=== PATIENT | female | born 1975 | race Caucasian/White ===

== ENCOUNTER 2020-02-19 12:01 | Outpatient (REF) | payer OTHER, SELFPAY ==
--- NOTE | 2020-02-19 12:05 | MM_ITS ---
EXAMINATION: MM SCREENING DIGITAL BREAST TOMOSYNTHESIS, BILATERAL CLINICAL INFORMATION: Screening. Asymptomatic. The lifetime risk of breast cancer based on the Tyrer-Cuzick Model is 8%. COMPARISON: Mammography: 10/03/2018, 02/28/2016, 12/11/2014 TECHNIQUE: Digital breast tomosynthesis is performed in both the craniocaudal and mediolateral oblique views along with computer-aided detection (CAD). Synthesized 2D images are generated from the tomosynthesis. FINDINGS: There are scattered areas of fibroglandular density (ACR BI-RADS breast composition Category b). There are no significant masses, abnormal calcifications, or other abnormalities. No developing density. No significant changes from prior studies. MM/MM tomosynthesis screening BI IMPRESSION: No significant changes from prior studies. ASSESSMENT: BI-RADS 1: Negative RECOMMENDATION: Routine annual mammography screening. This patient's information was entered into a reminder system with a target due date for their next mammogram.
== END 2020-02-19 12:02 | disposition home or self-care (01) ==
LOC: HO.MAMMO 12:01
PROVIDERS: Visit Provider Internal Medicine
DX: Z12.31 Encounter for screening mammogram for malignant neoplasm of breast (principal)
CPT/HCPCS: 77063; 77067

== ENCOUNTER 2021-01-06 09:44 | Outpatient (REF) | payer OTHER, SELFPAY ==
[2021-01-06 11:25] LABS: MANUAL DIFF FLAG NO
[2021-01-06 11:30] LABS: Basophils Percent Auto 0.7 % (0-2); Eosinophils Absolute Auto 0.1 X10*3/uL (0.0-0.4); Eosinophils Percent Auto 1.3 % (0-4); Hematocrit 39.9 % (37-47); Hemoglobin 12.8 g/dl (12.0-16.0); Imm Gran Abs Auto 0.03 X10*3/uL (0.00-0.03); Imm Gran Pct Auto 0.5 % (0.0-0.4); Lymphocytes Absolute Auto 1.7 X10*3/uL (1.2-4.9); Lymphocytes Percent Auto 27.3 % (20-40); Mean Corpuscular HGB Conc 32.1 g/dl (31.0-35.0); Mean Corpuscular Hemoglobin 29.8 pg (27.0-33.0); Mean Platelet Volume 10.5 fL (9.4-12.3); Monocytes Absolute Auto 0.4 X10*3/uL (0.1-1.2); Monocytes Percent Auto 6.7 % (2-11); Neutrophils Absolute Auto 3.9 X10*3/uL (2.0-8.3); Neutrophils Percent Auto 63.5 % (45-73); Platelet Count 261 X10*3/uL (160-400); Red Blood Count 4.29 X10*6/uL (4.20-5.50); Red Cell Distribution Width 13.4 % (11.0-16.0); White Blood Count 6.1 X10*3/uL (4.8-10.8)
[2021-01-06 12:09] LABS: Alanine Aminotransferase 18 U/L (0-31); Albumin Level 4.3 g/dL (3.5-5.0); Alkaline Phosphatase 40 U/L (39-117); Anion Gap 10 (12-20); Aspartate Amino Transferase 17 U/L (5-31); Bilirubin Total 1.1 mg/dL (0.0-1.0); Blood Urea Nitrogen 9 mg/dL (9-16); Carbon Dioxide 28 mmol/L (22-29); Chloride 106 mmol/L (96-108); Cholesterol 172 mg/dL; Estimated Glomerular Filt Rate > 60; Glucose Fasting 103 mg/dL (60-99); HDL Cholesterol 40 mg/dL; LDL Cholesterol Calculated 118 mg/dl; Potassium 4.1 mmol/L (3.3-5.1); Sodium 140 mmol/L (135-145); Total Protein 6.9 g/dL (6.5-8.0); Triglycerides 70 mg/dL
[2021-01-14 12:55] LABS: Vitamin D 25-OH, D2 <4 ng/mL; Vitamin D 25-OH, D3 42 ng/mL; Vitamin D 25-OH, Total 42 ng/mL (30-100)
== END 2021-01-06 09:45 | disposition home or self-care (01) ==
LOC: HO.HMGCLDS 09:44
PROVIDERS: PCP Internal Medicine; Visit Provider Internal Medicine
DX: Z00.01 Encounter for general adult medical examination with abnormal findings (principal); M54.50 Low back pain, unspecified; Z72.0 Tobacco use
CPT/HCPCS: 36415; 80053; 80061; 82306; 85025

== ENCOUNTER 2021-03-13 14:27 | Outpatient (REF) | payer OTHER, SELFPAY ==
--- NOTE | ~2021-03-13 | MM_ITS ---
EXAMINATION: MM SCREENING DIGITAL BREAST TOMOSYNTHESIS, BILATERAL CLINICAL INFORMATION: Screening. Asymptomatic. The lifetime risk of breast cancer based on the Tyrer-Cuzick Model is 7%. COMPARISON: Mammography: 02/19/2020, 10/03/2018, 02/28/2016 TECHNIQUE: Digital breast tomosynthesis is performed in both the craniocaudal and mediolateral oblique views along with computer-aided detection (CAD). Synthesized 2D images are generated from the tomosynthesis. FINDINGS: There are scattered areas of fibroglandular density (ACR BI-RADS breast composition Category b). Right breast is unremarkable. There is no interval mass or developing density or architectural abnormality. Neither breast shows abnormal calcifications. The bilateral axilla and skin contours are unremarkable. Left CC view has asymmetric density mid medial breast. There is no correlate on MLO view and finding may represent shifting fibroglandular densities related to positioning. Patient will be recalled to further characterize. MM/MM tomosynthesis screening BI IMPRESSION: 1. Left: Asymmetric density versus shifting fibroglandular tissue mid medial breast on CC view. 2. Right: No mammographic evidence of malignancy. ASSESSMENT: BI-RADS 0: Incomplete - Need Additional Imaging Evaluation RECOMMENDATION: 1. Additional views of the left breast (spot CC, rolled CC x2). 2. Targeted ultrasound if warranted after review of the additional views. 3. Radiology department staff will contact the patient for additional imaging. This patient's information was entered into a reminder system with a target due date for their next mammogram.
== END 2021-03-13 14:28 | disposition home or self-care (01) ==
LOC: HO.MAMMO 14:27
PROVIDERS: PCP Internal Medicine; Visit Provider Internal Medicine
DX: Z12.31 Encounter for screening mammogram for malignant neoplasm of breast (principal)
CPT/HCPCS: 77063; 77067

== ENCOUNTER 2021-03-17 09:09 | Outpatient (REF) | payer OTHER, SELFPAY ==
--- NOTE | ~2021-03-17 | MM_ITS ---
EXAMINATION: MM DIAGNOSTIC DIGITAL BREAST TOMOSYNTHESIS, LEFT CLINICAL INFORMATION: Asymmetric density medial aspect The lifetime risk of breast cancer based on the Tyrer-Cuzick Model is 7%. COMPARISON: Mammography: March 13, 2021 and studies dating back to December 02, 2013 TECHNIQUE: Digital breast tomosynthesis is performed in rolled full-field craniocaudal views and spot compression craniocaudal view Synthesized 2D images are generated from the tomosynthesis. FINDINGS: There are scattered areas of fibroglandular density (ACR BI-RADS breast composition Category b). There are no significant masses, abnormal calcifications, or other abnormalities. The questioned density about the medial aspect of the left breast is seen to have represented superimposition of fibroglandular tissue. Results are discussed with the patient at time of visit. MM/MM tomosynthesis diagnostic LT IMPRESSION: No specific mammographic evidence to suggest malignancy. ASSESSMENT: BI-RADS 1: Negative RECOMMENDATION: Routine annual mammography screening. This patient's information was entered into a reminder system with a target due date for their next mammogram.
== END 2021-03-17 09:10 | disposition home or self-care (01) ==
LOC: HO.MAMMO 09:09
PROVIDERS: PCP Internal Medicine; Visit Provider Internal Medicine
DX: R92.2 Inconclusive mammogram (principal)
CPT/HCPCS: 77061; 77065

== ENCOUNTER 2021-04-07 17:43 | Emergency (ER) | payer OTHER, SELFPAY ==
--- NOTE | ~2021-04-07 | XR_ITS ---
EXAMINATION: XR CHEST CLINICAL INFORMATION: Chest pain COMPARISON: None TECHNIQUE: Frontal view of the chest was obtained. FINDINGS: No significant abnormality is noted involving the heart, lungs, mediastinum, bony thorax or soft tissues. XR/XR chest 1V IMPRESSION: Unremarkable chest examination.
--- NOTE | ~2021-04-07 | CT_ITS ---
EXAMINATION: CT ANGIOGRAM OF THE CHEST WITH AND WITHOUT CONTRAST (CT PULMONARY ANGIOGRAM FOR PE) CLINICAL INFORMATION: Reason for Exam Left chest pain, pleuritic, rule out PE, mass COMPARISON: None TECHNIQUE: Prior to contrast administration, noncontrast localization images were obtained. Subsequently, multidetector volumetric imaging was performed from the thoracic inlet to below the diaphragms following the administration of 63 mL Omnipaque 350 intravenous contrast. No contrast reaction reported Sagittal, coronal, and MIP oblique sagittal reformatted images were obtained on the CT workstation, uploaded to PACS, and reviewed. This CT examination was performed using dose optimization techniques as appropriate, variously including the following: *Automated exposure control *Adjustment of mA and/or kV according to patient size (this includes techniques or standardized protocols for targeted exams where dose is matched to indication/reason for exam; i.e. extremities or head) *Use of iterative reconstruction technique Total exam dose-length product 117 mGy-cm FINDINGS: QUALITY OF STUDY/CONTRAST BOLUS: Satisfactory. PULMONARY ARTERIES: No central or segmental pulmonary emboli. THORACIC AORTA: No aneurysm or dissection. 2 vessel branching pattern of the arch is present with common trunk involving the brachiocephalic and left carotid. LUNG: No focal consolidation, nodules or masses. Calcified granuloma present in the right lower lobe. Some posterior blebs and reticulation is noted bilaterally. No pneumothorax. PLEURA: No pleural effusion or pneumothorax. MEDIASTINUM: Normal heart size. No pericardial effusion. No hilar or mediastinal lymphadenopathy. No evidence of septal bowing or right heart strain. CHEST WALL/AXILLA: No axillary or internal mammary lymphadenopathy. OSSEOUS STRUCTURES: No acute or suspicious osseous abnormality. UPPER ABDOMEN: A cyst is noted in the right lobe of the liver just beneath the hemidiaphragm ([id number]). No reflux of contrast into the hepatic veins to suggest elevated right heart pressures. CT/CT angio chest PE protocol IMPRESSION: 1. No evidence of pulmonary emboli. 2. No acute intrathoracic disease. Incidentally noted calcified right lower lobe granuloma VTE: negative
[2021-04-07 19:16] VITALS: BP 117/72; PULSE 79; RESP 16; TEMP 36.6; O2SAT 98; BMI 25.1
--- NOTE | 2021-04-07 19:23 | ECG_ITS ---
Test Reason : CP Blood Pressure : / mmHG Vent. Rate : 072 BPM Atrial Rate : 072 BPM P-R Int : 166 ms QRS Dur : 084 ms QT Int : 384 ms P-R-T Axes : 064 081 066 degrees QTc Int : 420 ms Normal sinus rhythm with sinus arrhythmia Low voltage QRS Septal infarct , age undetermined Abnormal ECG When compared to the previous EKG of Possible Septal infarct Present Referred By: Generic ED Physician Electronically Signed By:ROLANDO GALLAGHER MD
[2021-04-07 19:39] LABS: MANUAL DIFF FLAG NO
[2021-04-07 19:55] LABS: COVID-19 Test Negative (Negative)
[2021-04-07 19:57] LABS: Basophils Absolute Auto 0.1 X10*3/uL (0.0-0.2); Basophils Percent Auto 0.8 % (0-2); Eosinophils Absolute Auto 0.1 X10*3/uL (0.0-0.4); Eosinophils Percent Auto 1.9 % (0-4); Hematocrit 38.4 % (37.0-47.0); Imm Gran Abs Auto 0.03 X10*3/uL (0.00-0.03); Imm Gran Pct Auto 0.4 % (0.0-0.4); Lymphocytes Absolute Auto 2.4 X10*3/uL (1.2-4.9); Lymphocytes Percent Auto 32.8 % (20-40); Mean Corpuscular HGB Conc 33.9 g/dl (31.0-35.0); Mean Corpuscular Hemoglobin 30.6 pg (27.0-33.0); Mean Corpuscular Volume 90.4 fL (80.0-98.0); Mean Platelet Volume 9.9 fL (9.4-12.3); Monocytes Absolute Auto 0.5 X10*3/uL (0.1-1.2); Monocytes Percent Auto 7.1 % (2-11); Neutrophils Absolute Auto 4.2 x10*3/uL (2.0-8.3); Platelet Count 224 X10*3/uL (160-400); Red Blood Count 4.25 X10*6/uL (4.20-5.50); Red Cell Distribution Width 12.7 % (11.0-16.0); White Blood Count 7.3 X10*3/uL (4.8-10.8)
[2021-04-07 19:58] LABS: Anion Gap 13 (12-20); Blood Urea Nitrogen 13 mg/dL (9-16); Calcium 9.7 mg/dL (8.4-10.2); Carbon Dioxide 29 mmol/L (22-29); Chloride 105 mmol/L (96-108); Creatinine Clr Calc Pharmacy 81.6; Estimated Glomerular Filt Rate > 60; Glucose Random 72 mg/dL (60-115); Sodium 143 mmol/L (135-145)
[2021-04-07 20:01] LABS: Troponin-I High Sensitivity < 3.5 ng/L (<3.5-17.0)
[2021-04-07 22:22] VITALS: BP 115/64; PULSE 62; RESP 16; TEMP 36.7; O2SAT 98
--- NOTE | 2021-04-07 22:34 | PC.NURSE ---
pt to room, chg into gown and awaiting MD's eval. EKG obtained and labs drawn to lab. will continue to monitor pt.
--- NOTE | 2021-04-07 22:38 | ED_ITS ---
HPI - Chest Pain General Chief Complaint: Chest Pain Stated Complaint: LUNG PAIN Time Seen by Provider: 04/07/21 22:38 Source: patient Mode of arrival: ambulatory Limitations: no limitations History of Present Illness HPI narrative: 45-year-old female who presents emergency department for evaluation of left- sided chest pain. The patient states she had a COVID-19 infection approximately 2 years prior. She states that ever since then she has been having intermittent left-sided chest pain. She points to her lateral left chest when asked to localize the pain. She describes the pain as if someone is ?blowing up the balloon in her ribcage . She states that she has gotten this pain more frequently over the last 2 weeks. The pain is worse with breathing. She states she does feel short of breath but denies dyspnea on exertion. She denied fever, chills, nausea, vomiting, diarrhea. She denied myalgias or arthralgias. She states she has had some weight gain but cannot quantify the amount. She states that while she was waiting in the emergency department she developed left arm numbness and tingling this. She believes that she may have gotten COVID again 2 weeks prior since she had fatigue but she had no other symptoms. The patient is not vaccinated for COVID- 19. The patient does smoke cigarettes. She has been smoking for 32 years. Related Data Home Medications Medication Instructions Recorded Confirmed No Known Home Meds 01/06/21 01/06/21 Allergies Allergy/AdvReac Type Severity Reaction Status Date / Time No Known Allergies Allergy Verified 04/07/21 19:23 Review of Systems Verdana 4l Review of Systems: Yes all other systems are reviewed and Verdana 4d are negative [facility] Past Medical History [facility] Narrative: Past medical history: Hiatal hernia. Past surgical history: Hiatal hernia repair. Social history: The patient smokes 1 pack of cigarettes per week times 32 years. Patient denies alcohol use. She denies drug use. 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 Temp 98.1 F 04/07/21 22:22 Shovel Loader Operator New 4d Pulse 62 04/07/21 22:22 Shovel Loader Operator New 4d Resp 16 04/07/21 22:22 BP 115/64 04/07/21 22:22 Pulse Ox 98 04/07/21 22:22 BMI result Body Mass Index 25.1 Const: General: cooperative and no acute distress Orientation/consciousness: oriented to person and oriented to place Limitations: no limitations HENMT: Head: Yes normal to inspection, Yes normocephalic and Yes atraumatic Ears: external ears normal General nose exam: Normal external nose present Face and sinus: Yes normal facial exam Mouth: Normal oral and palatal mucosa present Throat: Yes posterior oropharynx normal Eyes: General: appearance normal, both eyes and all related structures Pupils: Equal, round and reactive pupils present Neck: Neck: Yes normal visual inspection, Yes no lymphadenopathy, Yes trachea midline and Yes supple Chest: Chest palpation & inspection: normal inspection of the chest and tenderness (Left costochondral joints, left lateral chest) Resp: Effort & Inspection: normal respiratory effort and able to speak in complete sentences Auscultation: clear to auscultation bilaterally Cardio: Rate: regular rate Rhythm: regular rhythm Heart sounds: S1 normal heart sound present, S2 normal heart sound present and no murmurs GI: Inspection: Yes normal to inspection Palpation (GI): Soft to palpation, nontender and no guarding Auscultation: normal bowel sounds : General: Yes no CVA tenderness Back/Spine/Pelvis: Back: no CVA tenderness Skin: General skin exam: no rashes or lesions noted Neuro: General: oriented to person and oriented to place Cranial nerves: Yes CN's II-XII intact bilaterally and Yes Equal, round and reactive pupils present Cognition (Neuro): normal cognition Motor exam (neuro): 5/5 motor strength present throughout Extrem: General: Yes normal to inspection Psych: Appearance: grossly normal Speech and movement: Normal speech and movement present Affect: normal affect Attitude: cooperative Thought process: Normal thought process present Thought content: Normal thought content present Course Course Course Narrative: 45-year-old female who presents emergency department for evaluation of intermittent chest pain x2 years with increased episodes of chest pain for the past 2 weeks. She states that this evening the pain became worse. The pain is located in the left chest underneath the left breast, she states the pain feels of some was blowing up the balloon in her chest and is worse with breathing. She does feel short of breath with the pain. Vital signs were normal. Patient's examination did reveal left costochondral joint tenderness and left lateral chest wall tenderness. Patient had a CBC and basic metabolic panel wh ich were unremarkable. The patient's high sensitivity troponin I was below detectable limits. Chest x-ray revealed no acute abnormality. COVID-19 test was negative. Given the pleuritic nature of her pain and her smoking history I am concerned the patient may have a PE versus a malignancy is the cause of her pain. I did order a CT pulmonary angiogram PE protocol. Patient was ordered to get normal saline IV x1 L and Toradol 15 mg IV for pain. 0222: The CT pulmonary angiogram PE protocol of the chest revealed no PE no evidence of malignancy or chest wall abnormalities. The patient does have an incidental right calcified granuloma which is not causing her pain. The patient did not get any relief of her pain from the IV Toradol. At this time I suspect the patient has musculoskeletal/joint pain with possible spasm. She was advised to take ibuprofen 600 mg 3 times a day for the next 4 days. She is also given cyclobenzaprine 10 mg to take 3 times a day as needed for pain as well. I did discuss the use and side effects these medications with the patient. MDM - Chest Pain Lab Data Result diagrams: 04/07/21 19:26 04/07/21 19:26 Labs: Lab Results 04/07/21 04/07/21 04/07/21 Range/Units 19:26 19:26 19:26 WBC 7.3 (4.8-10.8) X10*3/uL RBC 4.25 (4.20-5.50) X10*6/uL Hgb 13.0 (12.0-16.0) g/dl Hct 38.4 (37.0-47.0) % MCV 90.4 (80.0-98.0) fL MCH 30.6 (27.0-33.0) pg MCHC 33.9 (31.0-35.0) g/dl RDW 12.7 (11.0-16.0) % Plt Count 224 (160-400) X10*3/uL MPV 9.9 (9.4-12.3) fL Immature Gran % (Auto) 0.4 (0.0-0.4) % Neut % (Auto) 57.0 (45-73) % Lymph % (Auto) 32.8 (20-40) % Stafford % (Auto) 7.1 (2-11) % Eos % (Auto) 1.9 (0-4) % Baso % (Auto) 0.8 (0-2) % Lymph # (Auto) 2.4 (1.2-4.9) X10*3/uL Stafford # (Auto) 0.5 (0.1-1.2) X10*3/uL Eos # (Auto) 0.1 (0.0-0.4) X10*3/uL Baso # (Auto) 0.1 (0.0-0.2) X10*3/uL Abs Immat Gran (auto) 0.03 (0.00-0.03) X10*3/uL Absolute Neuts (auto) 4.2 (2.0-8.3) x10*3/uL Absolute Nucleated RBC 0.000 (0.0-0.012) X10*3/uL Nucleated RBC % (auto) 0.0 (0.0-0.2) /100WBC Sodium 143 (135-145) mmol/L Potassium 4.0 (3.3-5.1) mmol/L Chloride 105 (96-108) mmol/L Carbon Dioxide 29 (22-29) mmol/L Anion Gap 13 (12-20) BUN 13 (9-16) mg/dL Creatinine 0.89 (0.5-1.4) mg/dL Estim Creat Clear Calc 81.6 Estimated GFR > 60 Random Glucose 72 (60-115) mg/dL Calcium 9.7 D (8.4-10.2) mg/dL Troponin I High Sens < 3.5 (<3.5-17.0) ng/L COVID-19 ([facility]) (Negative) COVID-19 Clin Com 04/07/21 Range/Units 19:26 WBC (4.8-10.8) X10*3/uL RBC (4.20-5.50) X10*6/uL Hgb (12.0-16.0) g/dl Hct (37.0-47.0) % MCV (80.0-98.0) fL MCH (27.0-33.0) pg MCHC (31.0-35.0) g/dl RDW (11.0-16.0) % Plt Count (160-400) X10*3/uL MPV (9.4-12.3) fL Immature Gran % (Auto) (0.0-0.4) % Neut % (Auto) (45-73) % Lymph % (Auto) (20-40) % Stafford % (Auto) (2-11) % Eos % (Auto) (0-4) % Baso % (Auto) (0-2) % Lymph # (Auto) (1.2-4.9) X10*3/uL Stafford # (Auto) (0.1-1.2) X10*3/uL Eos # (Auto) (0.0-0.4) X10*3/uL Baso # (Auto) (0.0-0.2) X10*3/uL Abs Immat Gran (auto) (0.00-0.03) X10*3/uL Absolute Neuts (auto) (2.0-8.3) x10*3/uL Absolute Nucleated RBC (0.0-0.012) X10*3/uL Nucleated RBC % (auto) (0.0-0.2) /100WBC Sodium (135-145) mmol/L Potassium (3.3-5.1) mmol/L Chloride (96-108) mmol/L Carbon Dioxide (22-29) mmol/L Anion Gap (12-20) BUN (9-16) mg/dL Creatinine (0.5-1.4) mg/dL Estim Creat Clear Calc Estimated GFR Random Glucose (60-115) mg/dL Calcium (8.4-10.2) mg/dL Troponin I High Sens (<3.5-17.0) ng/L COVID-19 ([facility]) Negative (Negative) COVID-19 Clin Com See Note ECG Data ECG #1: Attestation: I personally reviewed and interpreted this ECG as follows: Interpretation: 192: Normal sinus rhythm with a rate of 72, normal MT interval QRS duration and QTC interval, no ST segment elevation, no ST segment depression, Q-wave in lead V1 and V2 with a small R-wave in V3 consistent with poor R-wave progression. Discharge Plan Discharge Clinical Impression: Acute costochondritis, Muscle spasm Patient Disposition: Home, Self-Care Instructions: Costochondritis (ED) Additional Instructions: Your blood work today was normal. Your EKG did not reveal any changes that are concerning for a new heart attack at this time. Your troponin was undetectable, the troponin is a marker of heart damage in it is reassuring that you do not have any troponin in your blood. I do not think that your pain is caused by a heart attack or heart damage. Your chest x-ray was unremarkable. The CT pulmonary angiogram of your chest did not reveal any blood clots, tumors in your lungs or abnormalities of your chest wall on the left, this is reassuring. You have an incidental calcified granuloma in the right lung which is not causing your pain and this is not related to your COVID-19 infection but is probably related to an old lung infection that you had in the past. I want to treat you for inflammation of your chest joints and spasm of your chest wall muscles. Take the anti-inflammatory medication, ibuprofen 200 mg pills, 3 pills every 6 hours as needed for pain x4 days then as needed for pain You can also Tylenol (acetaminophen) 500 mg pills, 2 pills every 4 to 6 hours as needed for pain. Take Flexeril (cyclobenzaprine) 10 mg pills, 1 pill every 6-8 hours as needed for pain or spasm. This medication will make you sleepy. Do not drive or work while taking this medication. I want you to start taking this medication, 1 pill at night for the next 4 night to see if this helps improve your pain and if it does you can then take it 3 times a day as needed for pain. Follow-up with your doctor in 2 days. Please return to the emergency department if your symptoms get worse or if you develop any symptoms that are concerning to you. Prescriptions: No Action No Known Home Meds 0RF
[2021-04-07] MEDS: Ketorolac Tromethamine 30 MG/ML VIAL 15 MG IVPUSH (23:21)
[2021-04-07] MEDS: 0.9 % Sodium Chloride 1,000 ML 999 ML IV (23:22)
[2021-04-07] MEDS: iohexoL 350 MG/ML 100 ML INFUS..BTL IV (23:52)
[2021-04-08] MEDS: Cyclobenzaprine HCl 10 MG TABLET PO (00:52)
== END 2021-04-08 01:05 | disposition home or self-care (01) ==
PROVIDERS: Emergency Provider Emergency Medicine Emergency Medical Services
DX: M94.0 Chondrocostal junction syndrome [Tietze] (principal); R07.89 Other chest pain; R07.81 Pleurodynia; Z87.891 Personal history of nicotine dependence; Z20.822 Contact with and (suspected) exposure to COVID-19
CPT/HCPCS: 36415; 71045; 71275; 80048; 84484; 85025; 87635; 93005; 96361; 96374; 99284; J1885; Q9967

== ENCOUNTER → 2021-05-18 14:43 | Outpatient (BNVA) | payer OTHER, SELFPAY | PROVIDERS: PCP Internal Medicine; Visit Provider Internal Medicine Pulmonary Disease ==

== ENCOUNTER 2022-04-19 08:46 | Outpatient (REF) | payer OTHER, SELFPAY ==
--- NOTE | ~2022-04-19 | MM_ITS ---
EXAMINATION: MM SCREENING DIGITAL BREAST TOMOSYNTHESIS, BILATERAL CLINICAL INFORMATION: Screening. Asymptomatic. The lifetime risk of breast cancer based on the Tyrer-Cuzick Model is 9.0%. COMPARISON: Mammography: March 17, 2021 and studies dating back to November 29, 2015 TECHNIQUE: Digital breast tomosynthesis is performed in both the craniocaudal and mediolateral oblique views along with computer-aided detection (CAD). Synthesized 2D images are generated from the tomosynthesis. FINDINGS: There are scattered areas of fibroglandular density (ACR BI-RADS breast composition Category b). There are no significant masses, abnormal calcifications, or other abnormalities. MM/MM tomosynthesis screening BI IMPRESSION: No significant changes from prior exam. ASSESSMENT: BI-RADS 1: Negative RECOMMENDATION: Routine annual mammography screening. This patient's information was entered into a reminder system with a target due date for their next mammogram.
== END 2022-04-19 08:47 | disposition home or self-care (01) ==
LOC: HO.MAMMO 08:46
PROVIDERS: PCP Internal Medicine; Visit Provider Internal Medicine
DX: Z12.31 Encounter for screening mammogram for malignant neoplasm of breast (principal)
CPT/HCPCS: 77063; 77067

== ENCOUNTER 2022-09-28 12:49 | Outpatient (AMB) | payer OTHER, SELFPAY ==
--- NOTE | 2022-09-28 12:52 | MHC.PC.OV ---
Vital Signs 09/28/22 12:54 Height 5 ft 9 in Weight 17 lb BMI 2.5 BP 100/64 Blood Pressure Location Rt brachial Position Sitting Pulse 74 Pulse Source Pulse Oximeter Pulse Oximetry (%) 96 Oxygen Delivery Method Room Air Intake Visit Reasons: Discuss Referral Request Allergies No Known Allergies Allergy (Verified 09/28/22 12:54) Medication List - Last Reconciled 09/28/22 by Frances Flores MD No Known Home Meds Tobacco use date assessed: 09/28/22 Dental Screening Dental Screen Date: 09/28/22 Did you have a dental visit in the last 12 months?: Yes Did you have a dental problem in the last 6 months where you did not have access to dental care?: No Was dental information given to patient?: Patient has dentist HPI Discuss Referral Request HPI Details Patient is a 47-year-old female who was last seen April of last year when she presented with feeling of shortness of breath pain left-sided chest and abdomen with shortness of breath Patient was referred to Dr Connors child protective services specialist patient prior to visit with Pulmonary already had a CTA which ruled out PE She contributed her symptoms to COVID infection that she had few weeks earlier. note reviewed from last year, pulmonary did not think the patient's symptoms are related to chest wall all pulmonary. 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 Patient says that frequently she gets flare-up of her hemorrhoids and was thinking of getting surgery however this time she is feeling will better On examination she has a very small hemorrhoids there is no thrombosis there is no pain at this time. Explained to patient that there is no need to do any surgery be need to control the flare up by not letting hard stools formed or getting constipated She is to start taking senna S [id number] 1 or 2 tablets to regulate the bowels and push more fluids. She is also complaining of lower back pain which is also chronic and is requesting a physical therapy. Due for physical exam [facility] Medical History COVID Social History Housing: House Patient Tobacco Use Status: Former Tobacco user Quit Date: 2020 Tobacco use type: Cigarette Years Smoked: 20 years e-Cigarette/Vaping Use: Never Used Current occupational status: employed Cognitive needs: No Hearing needs: No Vision needs: No Questionnaire Thrive Questionnaire Date Thrive assessed: 01/06/21 AUDIT C Alcohol Use Questionnaire (AUDIT-C) 1. How often do you have a drink containing alcohol?: Never Total Score: 0 Review of Systems Const Denies chills and Denies fever(s) ENT Denies epistaxis and Denies nasal discharge Card Denies chest pain Resp Denies chest congestion, Denies cough and Denies hemoptysis GI Denies diarrhea and Denies nausea Skin/Breast Denies rash Neuro Reports no additional complaints Psych Reports no additional complaints Endo Reports no additional complaints Physical exam (Primary Care) Vital Signs: Last Vital Signs Pulse 74 09/28/22 12:54 BP 100/64 09/28/22 12:54 Pulse Ox 96 09/28/22 12:54 Oxygen Delivery Method Room Air 09/28/22 12:54 BMI result Body Mass Index 2.5 Tobacco/Smoking Status: Tobacco use Status Tobacco use date assessed 09/28/22 09/28/22 12:56 Patient Tobacco Use Status Former Tobacco user 09/28/22 12:53 Tobacco use type Cigarette 09/28/22 12:53 e-Cigarette/Vaping Use Never Used 09/28/22 12:56 Thrive Assessment: Date of Thrive Assessment Date Thrive assessed 01/06/21 09/28/22 12:53 Const General: cooperative, comfortable and no acute distress Orientation/consciousness: patient oriented x3 HENMT Head: Yes normocephalic Eyes General: appearance normal, both eyes and all related structures Neck Neck: Yes supple Resp Effort & Inspection: normal respiratory effort, no cough and no stridor Cardio Rhythm: regular rhythm Heart sounds: S1 normal heart sound present and S2 normal heart sound present GI Other: Rectal exam revealed very small single external hemorrhoid there is no thrombosis Skin General skin exam: turgor normal Neuro General: patient oriented x3, tone normal and moves all extremities Extrem Right lower extremity: no edema Left lower extremity: no edema Assessment and Plan Assessment & Plan (1) External hemorrhoid: Code(s): K64.4 - Residual hemorrhoidal skin tags (2) Lumbar pain: Code(s): M54.50 - Low back pain, unspecified (3) Constipation by delayed colonic transit: Code(s): K59.01 - Slow transit constipation (4) Hard stool: Code(s): R19.5 - Other fecal abnormalities Plan Patient is a 47-year-old female who was last seen April of last year when she presented with feeling of shortness of breath pain left-sided chest and abdomen with shortness of breath Patient was referred to Dr Connors child protective services specialist patient prior to visit with Pulmonary already had a CTA which ruled out PE She contributed her symptoms to COVID infection that she had few weeks earlier. note reviewed from last year, pulmonary did not think the patient's symptoms are related to chest wall all pulmonary. 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 Patient says that frequently she gets flare-up of her hemorrhoids and was thinking of getting surgery however this time she is feeling will better On examination she has a very small hemorrhoids there is no thrombosis there is no pain at this time. Explained to patient that there is no need to do any surgery be need to control the flare up by not letting hard stools formed or getting constipated She is to start taking senna S [id number] 1 or 2 tablets to regulate the bowels and push more fluids. She is also complaining of lower back pain which is also chronic and is requesting a physical therapy. Due for physical exam Orders: Orders PT Evaluation and Treatment Today M54.50 - Low back pain, unspecified Coding Level of Care Code Est Pt Level 4 (82680) Diagnoses External hemorrhoid K64.4 Lumbar pain M54.50 Constipation by delayed colonic transit K59.01 Hard stool R19.5
[2022-09-28 12:54] VITALS: BP 100/64; PULSE 74; O2SAT 96
== END 2022-09-28 13:16 | disposition home or self-care (01) ==
PROVIDERS: PCP Internal Medicine; Visit Provider Internal Medicine
DX: K64.4 Residual hemorrhoidal skin tags (principal); M54.50 Low back pain, unspecified; K59.01 Slow transit constipation; R19.5 Other fecal abnormalities
CPT/HCPCS: 99214

== ENCOUNTER 2022-12-12 08:25 | Outpatient (AMB) | payer OTHER, SELFPAY ==
--- NOTE | 2022-12-12 08:29 | A.OFFPC_ITS ---
Vital Signs 12/12/22 08:30 Height 5 ft 9 in Weight 178 lb 4 oz BMI 26.3 BP 104/70 Blood Pressure Location Rt brachial Position Sitting Pulse 68 Pulse Oximetry (%) 99 Oxygen Delivery Method Room Air Intake Visit Reasons: Annual PE Allergies No Known Allergies Allergy (Verified 12/12/22 08:32) Medication List - Last Reconciled 12/12/22 by Frances Flores MD No Known Home Meds Tobacco use date assessed: 12/12/22 Dental Screening Dental Screen Date: 12/12/22 Did you have a dental visit in the last 12 months?: Yes Did you have a dental problem in the last 6 months where you did not have access to dental care?: No Was dental information given to patient?: Patient has dentist HPI Annual PE HPI Details Patient is a 47-year-old female came in today for physical examination Patient goes to [facility] for her gynecological needs, she declined a breast exam today Mammogram was in April of this year I have placed a referral for colonoscopy Patient is under lot of stress she is still fighting for custody of her 11-year-old son She recently got again and hers is very supportive she tells me. Going over her previous labs I do see that 1 time her fasting sugar was slightly off and bilirubin was slightly off as well I have ordered labs for her again she will do them fasting. Patient says that she breaks out into acne off and on and would like to consult a track hoe operator. She also continued to have chronic lower back pain and is seeing chiropractor every 2 weeks. Physical exam 1 year [facility] Medical History COVID Social History Housing: House Patient Tobacco Use Status: Former Tobacco user Quit Date: 2020 Tobacco use type: Cigarette Years Smoked: 20 years e-Cigarette/Vaping Use: Never Used Current occupational status: employed Cognitive needs: No Hearing needs: No Vision needs: No Questionnaire PHQ-9 Over the last 2 weeks, how often have you been bothered by any of the following problems? 1. Little interest or pleasure in doing things: not at all 2. Feeling down, depressed, or hopeless: not at all 3. Trouble falling or staying asleep, or sleeping too much: not at all 4. Feeling tired or having little energy: not at all 5. Poor appetite or overeating: not at all 6. Feeling bad about yourself - or that you are a failure or have let yourself or your family down: not at all 7. Trouble concentrating on things, such as reading the newspaper or watching television: not at all 8. Moving or speaking so slowly that other people could have noticed. Or the opposite - being so fidgety or restless that you have been moving around a lot more than usual: not at all 9. Thoughts that you would be better off or of hurting yourself in some way: not at all Total score: 0 Depression Screening Interpretation: Negative Depression Screening Done: Yes 59054 - PHQ-9 Billing: Yes Source: Developed by Drs. Barak Ann, Christina Alarcon, Deny Sharif and colleagues, with an educational giuliano from [employer] Thrive Questionnaire Date Thrive assessed: 12/12/22 I am a: Patient What is your living situation today?: I have a steady place to live Within the past 12 months, did the food you bought not last and you didn't have the money to get more?: Never true Within the past 12 months, did you worry whether your food would run out before you got money to buy more?: Never true Do you have trouble paying for medicines?: No Do you have trouble getting transportation to medical appointments?: No Do you have trouble paying your heating and electricity bill?: No Do you have trouble taking care of your child, family member or friend?: No Do you have trouble with day-to-day activities such as bathing, preparing meals, shopping, managing finances, etc.?: No Are you currently unemployed and looking for a job?: No Are you interested in more education?: No AUDIT C Alcohol Use Questionnaire (AUDIT-C) 1. How often do you have a drink containing alcohol?: Never 3. How often do you have six or more drinks on one occasion?: Never Total Score: 0 Score Reviewed/Action Taken: Yes CAM-7 AMB Questionnaire CAM-7 Date CAM - 7 assessed: 12/12/22 Feeling nervous, anxious, or on edge: 1 = Several days Not being able to stop or control worryin = Several days Worrying too much about different things: 1 = Several days Trouble relaxin = Several days Being so restless that it is hard to sit still: 0 = Not at all Becoming easily annoyed or irritable: 0 = Not at all Feeling afraid as if something awful might happen: 1 = Several days Total CAM-7 score (0-4 normal; 5-9 mild; 10-14 moderate; 15-21 severe): 5 Source: Developed by Drs. Barak Ann, Christina Alarcon, Deny Shairf and colleagues, with an educational giuliano from [employer] CAM-7 Assessment Billing CAM-7 Assessment Tool: CAM-7 Assessment 47932 Review of Systems Const Denies chills, Denies fever(s) and Denies headache(s) Eyes Denies blurry vision ENT Denies headache(s), Denies nasal discharge, Denies nasal obstruction, Denies odynophagia and Denies sinus pain Card Denies chest pain at rest and Denies chest pain with activity Resp Denies cough and Denies hemoptysis GI Denies diarrhea, Denies odynophagia, Denies vomiting and Denies hematemesis Reports as per HPI Musc Denies abnormal gait Skin/Breast Reports as per HPI Neuro Denies Neuro-related abnormal movements, Denies Abnormal speech present, Denies abnormal gait, Denies headache(s) and Denies Sensory deficit (Neuro) Psych Denies mood swings and Denies paranoia Endo Reports as per HPI Ryan/Lymph Reports as per HPI Aller/Immun Reports as per HPI Physical exam (Primary Care) Vital Signs: Last Vital Signs Pulse 68 12/12/22 08:30 BP 104/70 12/12/22 08:30 Pulse Ox 99 12/12/22 08:30 Oxygen Delivery Method Room Air 12/12/22 08:30 BMI result Body Mass Index 26.3 Tobacco/Smoking Status: Tobacco use Status Tobacco use date assessed 12/12/22 12/12/22 08:34 Patient Tobacco Use Status Former Tobacco user 12/12/22 08:34 Tobacco use type Cigarette 12/12/22 08:34 e-Cigarette/Vaping Use Never Used 12/12/22 08:34 PHQ-9: PHQ-9 Score PHQ-9: Total score 0 12/12/22 09:04 Depression Screening Interpretation: Negative Thrive Assessment: Date of Thrive Assessment Date Thrive assessed 12/12/22 12/12/22 09:04 Const General: cooperative, comfortable and no acute distress Orientation/consciousness: patient oriented x3 HENMT Head: Yes normocephalic and Yes atraumatic Eyes General: appearance normal, both eyes and all related structures Pupils: Equal, round and reactive pupils present EOM: EOMs intact bilaterally Neck Neck: Yes supple and No lymphadenopathy Thyroid: Thyroid normal Lymphatic: no lymphadenopathy noted Resp Effort & Inspection: normal respiratory effort and able to speak in complete sentences Auscultation: clear to auscultation bilaterally Cardio Heart sounds: S1 normal heart sound present and S2 normal heart sound present GI Palpation (GI): Soft to palpation and nontender Auscultation: normal bowel sounds General: Yes no CVA tenderness Back/Spine/Pelvis Back: no CVA tenderness Skin General skin exam: elasticity normal and turgor normal Neuro General: patient oriented x3 and gait normal Cranial nerves: Yes Equal, round and reactive pupils present Speech: No Abnormal speech present Sensory Exam: No Sensory deficit (Neuro) Coordination: tandem gait normal and Romberg test negative Extrem General: Yes normal exam except as noted and No edema Assessment and Plan Assessment & Plan (1) Encounter for general adult medical examination with abnormal findings: Code(s): Z00.01 - Encounter for general adult medical examination with abnormal findings (2) Non-cardiac chest pain: Code(s): R07.89 - Other chest pain (3) Nicotine dependence: Code(s): F17.200 - Nicotine dependence, unspecified, uncomplicated Qualifiers: Nicotine product type: other Substance use status: uncomplicated Qualified Code(s): F17.290 - Nicotine dependence, other tobacco product, uncomplicated (4) Stress: Code(s): F43.9 - Reaction to severe stress, unspecified (5) Acne: Code(s): L70.9 - Acne, unspecified Qualifiers: Acne type: other acne Qualified Code(s): L70.8 - Other acne (6) Chronic lower back pain: Code(s): M54.50 - Low back pain, unspecified; G89.29 - Other chronic pain Qualifiers: Back pain laterality: bilateral Sciatica presence: without sciatica Qualified Code(s): M54.50 - Low back pain, unspecified; G89.29 - Other chronic pain (7) External hemorrhoid: Code(s): K64.4 - Residual hemorrhoidal skin tags (8) Impaired fasting blood sugar: Code(s): R73.01 - Impaired fasting glucose (9) LFT elevation: Code(s): R79.89 - Other specified abnormal findings of blood chemistry Plan Patient is a 47-year-old female came in today for physical examination Patient goes to [facility] for her gynecological needs, she declined a breast exam today Mammogram was in April of this year I have placed a referral for colonoscopy Patient is under lot of stress she is still fighting for custody of her 11-year-old son She recently got again and hers is very supportive she tells me. Going over her previous labs I do see that 1 time her fasting sugar was slightly off and bilirubin was slightly off as well I have ordered labs for her again she will do them fasting. Patient says that she breaks out into acne off and on and would like to consult a track hoe operator. She also continued to have chronic lower back pain and is seeing chiropractor e very 2 weeks. Constipation is better she is taking stool softener as needed however continued to have hemorrhoids without flare-up Still has nicotine dependence, she is chewing gum now but tells me that she only juice to comes for stress relief Physical exam 1 year Orders: Orders Complete Blood Count Auto Diff Today F17.200 - Nicotine dependence, unspecified, uncomplicated, F43.9 - Reaction to severe stress, unspecified, R07.89 - Other chest pain, Z00.01 - Encounter for general adult medical examination with abnormal findings Comprehensive [place]. Panel Fast Today F17.200 - Nicotine dependence, unspecified, uncomplicated, F43.9 - Reaction to severe stress, unspecified, R07.89 - Other chest pain, Z00.01 - Encounter for general adult medical examination with abnormal findings Lipid Panel Today F17.200 - Nicotine dependence, unspecified, uncomplicated, F43.9 - Reaction to severe stress, unspecified, R07.89 - Other chest pain, Z00.01 - Encounter for general adult medical examination with abnormal findings Magnesium Today F17.200 - Nicotine dependence, unspecified, uncomplicated, F43.9 - Reaction to severe stress, unspecified, R07.89 - Other chest pain, Z00.01 - Encounter for general adult medical examination with abnormal findings Referrals Open Access Screening Colonoscopy Referral Z12.11 - Encounter for screening for malignant neoplasm of colon, Z12.12 - Encounter for screening for malignant neoplasm of rectum Dermatology Referral L70.9 - Acne, unspecified Coding Level of Care Code Est Pt Prev Care 40-64y(45327) Diagnoses Encounter for general adult medical examination with abnormal findings Z00.01 Non-cardiac chest pain R07.89 Other tobacco product nicotine dependence, uncomplicated F17.290 Nicotine product type: other Substance use status: uncomplicated Stress F43.9 Other acne L70.8 Acne type: other acne Chronic bilateral low back pain without sciatica M54.50; G89.29 Back pain laterality: bilateral Sciatica presence: without sciatica External hemorrhoid K64.4 Impaired fasting blood sugar R73.01 LFT elevation R79.89 Additional Codes CAM-7 Assessment Billing - CAM-7 Assessment Tool: CAM-7 Assessment [id number] ([id number])
[2022-12-12 08:30] VITALS: BP 104/70; PULSE 68; O2SAT 99; BMI 26.3
== END 2022-12-12 09:02 | disposition home or self-care (01) ==
PROVIDERS: PCP Internal Medicine; Visit Provider Internal Medicine
DX: Z00.00 Encounter for general adult medical examination without abnormal findings (principal); R07.89 Other chest pain; F17.290 Nicotine dependence, other tobacco product, uncomplicated; F43.9 Reaction to severe stress, unspecified; L70.8 Other acne; M54.50 Low back pain, unspecified; G89.29 Other chronic pain; K64.4 Residual hemorrhoidal skin tags; R73.01 Impaired fasting glucose; R79.89 Other specified abnormal findings of blood chemistry
CPT/HCPCS: 99396

== ENCOUNTER 2022-12-13 08:04 | Outpatient (REF) | payer OTHER, SELFPAY ==
[2022-12-13 11:48] LABS: Alanine Aminotransferase 12 U/L (0-31); Albumin Level 4.1 g/dL (3.5-5.0); Alkaline Phosphatase 36 U/L (39-117); Anion Gap 13 (12-20); Aspartate Amino Transferase 14 U/L (5-31); Bilirubin Total 0.7 mg/dL (0.0-1.0); Blood Urea Nitrogen 15 mg/dL (9-16); Calcium 8.6 mg/dL (8.4-10.2); Carbon Dioxide 27 mmol/L (22-29); Chloride 106 mmol/L (96-108); Cholesterol 160 mg/dL (<200); Estimated Glomerular Filt Rate > 60; Glucose Fasting 110 mg/dL (60-99); HDL Cholesterol 43 mg/dL (>40); LDL Cholesterol Calculated 108 mg/dL (<100); Magnesium 2.2 mg/dL (1.6-2.6); Potassium 4.1 mmol/L (3.3-5.1); Sodium 142 mmol/L (135-145); Total Protein 6.7 g/dL (6.5-8.0); Triglycerides 48 mg/dL (<150)
== END 2022-12-13 08:05 | disposition home or self-care (01) ==
LOC: HO.HMGCLDS 08:04
PROVIDERS: PCP Internal Medicine; Visit Provider Internal Medicine
DX: Z00.01 Encounter for general adult medical examination with abnormal findings (principal); R07.89 Other chest pain; F43.9 Reaction to severe stress, unspecified; F17.200 Nicotine dependence, unspecified, uncomplicated
CPT/HCPCS: 36415; 80053; 80061; 83735; 85025

== ENCOUNTER → 2023-03-21 08:09 | Outpatient (REF) | payer OTHER, SELFPAY ==
--- NOTE | 2023-03-21 08:18 | CA_ITS ---
Acquisition Time: 2023-03-21 08:34:07 Total Exercise Time: 00:09:19 Test Indications: CHEST PAIN Medications: NONE Protocol: ANDI Max HR: 150 BPM 87% of Pred: 171 BPM Max BP: 130/072 mmHG Max Work Load: 10.6 METS Exercise stress test exercise 9 min 19 sec of Andi protocol achieving 87% MPHR, without anginal symptoms, without arrhythmias, with normotesnive response to exercise, without EKG changes. Test reviewed with Dr. Moreland Referred By: Frances Flores Overread By: Barbara Hoffman
== END ==
LOC: HO.CARD 08:09
PROVIDERS: PCP Internal Medicine; Visit Provider Internal Medicine
DX: R07.9 Chest pain, unspecified (principal); Z82.49 Family history of ischemic heart disease and other diseases of the circulatory system
CPT/HCPCS: 93017

== ENCOUNTER → 2023-03-21 08:18 | Outpatient (BNV) | payer OTHER, SELFPAY | PROVIDERS: PCP Internal Medicine; Visit Provider Nurse Practitioner | DX: R07.9 Chest pain, unspecified (principal) | CPT/HCPCS: 93016; 93018 ==

== ENCOUNTER 2023-04-03 13:12 | Outpatient (AMB) | payer OTHER, SELFPAY ==
[2023-04-03 13:13] VITALS: BP 106/70; PULSE 84; O2SAT 99; BMI 27.1
--- NOTE | 2023-04-03 13:13 | A.OFFPC_ITS ---
Vital Signs 04/03/23 13:13 Height 5 ft 9 in Weight 183 lb 6 oz BMI 27.1 BP 106/70 Blood Pressure Location Lt brachial Position Sitting Pulse 84 Pulse Source Pulse Oximeter Pulse Oximetry (%) 99 Oxygen Delivery Method Room Air Intake Visit Reasons: Followup chest pain Allergies No Known Allergies Allergy (Verified 04/03/23 13:14) Medication List - Last Reconciled 04/03/23 by Frances Flores MD No Known Home Meds Tobacco use date assessed: 04/03/23 Dental Screening Dental Screen Date: 04/03/23 Did you have a dental visit in the last 12 months?: Yes Did you have a dental problem in the last 6 months where you did not have access to dental care?: No Was dental information given to patient?: Patient has dentist HPI Followup chest pain HPI Details Patient is a 47-year-old female who was last seen by me December of 2022 Patient continued to have chest pains off and on she has been seen in emergency room for that as well Recently she had a stress test done which came back within normal limit Stressed test done 03/21/2023 Showed:Exercise stress test exercise 9 min 19 sec of Dillan protocol achieving 87% MPHR, without anginal symptoms, without arrhythmias, with normotesnive response to exercise, without EKG changes. Test reviewed with Dr. Moreland She came in today for a follow-up appointment Patient is taking no medications currently Last time patient labs in December of last year her fasting sugar was 110 We did the A1c today which is 5.9 Patient had gestational diabetes and she already know how to manage diet I am prescribing gabapentin 100 mg capsule patient is to start taking 1 at night, patient says that she will hold onto the medication for now but she will start taking it next time she has chest discomfort which usually happens at night when she is laying down. We talked about possibility of reflux as well Prilosec is [id number] she can also try that. She does admit to feeling stressed and anxious at time and also depressed however taking no medication and is stable Meanwhile she is taking baby aspirin which has [facility] Medical History COVID Social History Housing: House Patient Tobacco Use Status: Former Tobacco user Quit Date: 2020 Tobacco use type: Cigarette Years Smoked: 20 years e-Cigarette/Vaping Use: Never Used Current occupational status: employed Cognitive needs: No Hearing needs: No Vision needs: No Questionnaire PHQ-9 Over the last 2 weeks, how often have you been bothered by any of the following problems? 1. Little interest or pleasure in doing things: not at all 2. Feeling down, depressed, or hopeless: not at all 3. Trouble falling or staying asleep, or sleeping too much: not at all 4. Feeling tired or having little energy: not at all 5. Poor appetite or overeating: not at all 6. Feeling bad about yourself - or that you are a failure or have let yourself or your family down: not at all 7. Trouble concentrating on things, such as reading the newspaper or watching television: not at all 8. Moving or speaking so slowly that other people could have noticed. Or the opposite - being so fidgety or restless that you have been moving around a lot more than usual: not at all 9. Thoughts that you would be better off or of hurting yourself in some way: not at all Total score: 0 Depression Screening Interpretation: Negative Depression Screening Done: Yes 94480 - PHQ-9 Billing: Yes Source: Developed by Drs. Barak Ann, Christina Alarcon, Deny Sharif and colleagues, with an educational giuliano from [employer]. Thrive Questionnaire Date Thrive assessed: 04/03/23 I am a: Patient What is your living situation today?: I have a steady place to live Within the past 12 months, did the food you bought not last and you didn't have the money to get more?: Never true Within the past 12 months, did you worry whether your food would run out before you got money to buy more?: Never true Do you have trouble paying for medicines?: No Do you have trouble getting transportation to medical appointments?: No Do you have trouble paying your heating and electricity bill?: No Do you have trouble taking care of your child, family member or friend?: No Do you have trouble with day-to-day activities such as bathing, preparing meals, shopping, managing finances, etc.?: No Are you currently unemployed and looking for a job?: Yes Are you interested in more education?: No Please select the resources that you would like help with: None Currently or been in a relationship where the following occur: no concerns reported THRIVE Score: 0 AUDIT C Alcohol Use Questionnaire (AUDIT-C) 1. How often do you have a drink containing alcohol?: Never 3. How often do you have six or more drinks on one occasion?: Never Total Score: 0 Score Reviewed/Action Taken: Yes CAM-7 AMB Questionnaire CAM-7 Date CAM - 7 assessed: 04/03/23 Feeling nervous, anxious, or on edge: 2 = More than half the days Not being able to stop or control worryin = Not at all Worrying too much about different things: 2 = More than half the days Trouble relaxin = Not at all Being so restless that it is hard to sit still: 0 = Not at all Becoming easily annoyed or irritable: 0 = Not at all Feeling afraid as if something awful might happen: 0 = Not at all Total CAM-7 score (0-4 normal; 5-9 mild; 10-14 moderate; 15-21 severe): 4 Source: Developed by Drs. Barak Ann, Christina Alarcon, Deny Sharif and colleagues, with an educational giuliano from [employer]. CAM-7 Assessment Billing CAM-7 Assessment Tool: CAM-7 Assessment 78698 Review of Systems Const Denies chills and Denies fever(s) ENT Denies epistaxis and Denies nasal discharge Resp Denies chest congestion, Denies cough and Denies hemoptysis GI Denies diarrhea and Denies nausea Skin/Breast Denies rash Neuro Reports no additional complaints Psych Reports no additional complaints Endo Reports no additional complaints Physical exam (Primary Care) Vital Signs: Last Vital Signs Pulse 84 04/03/23 13:13 BP 106/70 04/03/23 13:13 Pulse Ox 99 04/03/23 13:13 Oxygen Delivery Method Room Air 04/03/23 13:13 BMI result Body Mass Index 27.1 Tobacco/Smoking Status: Tobacco use Status Tobacco use date assessed 04/03/23 04/03/23 13:15 Patient Tobacco Use Status Former Tobacco user 04/03/23 13:15 Tobacco use type Cigarette 04/03/23 13:15 e-Cigarette/Vaping Use Never Used 04/03/23 13:15 PHQ-9: PHQ-9 Score PHQ-9: Total score 0 04/03/23 13:49 Depression Screening Interpretation: Negative Thrive Assessment: Date of Thrive Assessment Date Thrive assessed 04/03/23 04/03/23 13:49 Currently or been in a relationship where the following occur: no concerns reported Const General: cooperative, comfortable and no acute distress Orientation/consciousness: patient oriented x3 HENMT Head: Yes normocephalic Eyes General: appearance normal, both eyes and all related structures Neck Neck: Yes supple Chest Other: No pain with palpation of chest Resp Effort & Inspection: normal respiratory effort, no cough and no stridor Cardio Rhythm: regular rhythm Heart sounds: S1 normal heart sound present and S2 normal heart sound present Skin General skin exam: turgor normal Neuro General: patient oriented x3, tone normal and moves all extremities Extrem Right lower extremity: no edema Left lower extremity: no edema Results AMB Hemoglobin A1c AMB Hemoglobin A1c 5.9 % Last Edit by Chris Arnold CMA on 04/03/23 14: 06 Results Reviewed Results Reviewed: Laboratory Last Values Hgb A1c (Clinic) 5.9 % (4.0-6.0) 04/03/23 14:05 Assessment and Plan Assessment & Plan (1) Non-cardiac chest pain: Code(s): R07.89 - Other chest pain (2) Major depression, recurrent: Code(s): F33.9 - Major depressive disorder, recurrent, unspecified Qualifiers: Active/Remission status: in full remission Qualified Code(s): F33.42 - Major depressive disorder, recurrent, in full remission (3) Anxiety, generalized: Code(s): F41.1 - Generalized anxiety disorder (4) Impaired fasting blood sugar: Code(s): R73.01 - Impaired fasting glucose Plan Patient is a 47-year-old female who was last seen by me December of 2022 Patient continued to have chest pains off and on she has been seen in emergency room for that as well Recently she had a stress test done which came back within normal limit Stressed test done 03/21/2023 Showed:Exercise stress test exercise 9 min 19 sec of Dillan protocol achieving 87% MPHR, without anginal symptoms, without arrhythmias, with normotesnive response to exercise, without EKG changes. Test reviewed with Dr. Aniceto She came in today for a follow-up appointment Patient is taking no medications currently Last time patient labs in December of last year her fasting sugar was 110 We did the A1c today which is 5.9 Patient had gestational diabetes and she already know how to manage diet I am prescribing gabapentin 100 mg capsule patient is to start taking 1 at night, patient says that she will hold onto the medication for now but she will start taking it next time she has chest discomfort which usually happens at night when she is laying down. We talked about possibility of reflux as well Prilosec is [id number] she can also try that. She does admit to feeling stressed and anxious at time and also depressed however taking no medication and is stable Meanwhile she is taking baby aspirin which has helped Orders: Orders AMB Hemoglobin A1c Today Z13.9 - Encounter for screening, unspecified Coding Level of Care Code Est Pt Level 4 (20149) Diagnoses Non-cardiac chest pain R07.89 Recurrent major depressive disorder, in full remission F33.42 Active/Remission status: in full remission Anxiety, generalized F41.1 Impaired fasting blood sugar R73.01 Additional Codes CAM-7 Assessment Billing - CAM-7 Assessment Tool: CAM-7 Assessment 60106 ([id number])
== END 2023-04-03 15:05 | disposition home or self-care (01) ==
PROVIDERS: PCP Internal Medicine; Visit Provider Internal Medicine
DX: R07.89 Other chest pain (principal); F33.42 Major depressive disorder, recurrent, in full remission; F41.1 Generalized anxiety disorder; R73.01 Impaired fasting glucose
CPT/HCPCS: 83036; 99214

== ENCOUNTER → 2023-04-23 08:30 | Outpatient (BNV) | payer OTHER, SELFPAY | PROVIDERS: PCP Internal Medicine; Visit Provider Radiology Diagnostic Radiology | DX: Z12.31 Encounter for screening mammogram for malignant neoplasm of breast (principal) | CPT/HCPCS: 77063; 77067 ==

== ENCOUNTER 2023-04-23 08:34 | Outpatient (REF) | payer OTHER, SELFPAY | END 2023-04-23 08:35 | disposition home or self-care (01) | LOC: HO.MAMMO 08:34 | PROVIDERS: PCP Internal Medicine; Visit Provider Internal Medicine | DX: Z12.31 Encounter for screening mammogram for malignant neoplasm of breast (principal) | CPT/HCPCS: 77063; 77067 ==

== ENCOUNTER 2023-08-08 07:34 | Day surgery (SDC) | payer OTHER, SELFPAY ==
--- NOTE | 2023-08-07 08:26 | P.CONAN_ITS ---
Documented by User: Falguni Anderson NP 08/07/23 08:27 HPI - Anesthesia Eval Consult details Narrative: 47yo F for Colonoscopy 12/2022 Seen by PCP for chest pain. Negative stress test. [facility] Active Problems Active Problems: All Active Problems Chest pain (Acute) Family history of coronary artery disease (Acute) LFT elevation (Acute) Impaired fasting blood sugar (Acute) Chronic lower back pain (Acute) Nicotine dependence (Acute) Hard stool (Acute) Constipation by delayed colonic transit (Acute) External hemorrhoid (Acute) Left upper quadrant abdominal pain (Acute) Rib pain on left side (Acute) Major depression, recurrent (Acute) Anxiety, generalized (Acute) Stress (Acute) Shortness of breath (Acute) Non-cardiac chest pain (Acute) Lumbar pain (Acute) Tobacco use (Acute) Encounter for general adult medical examination with abnormal findings (Acute) Acne (Acute) Past Medical History Medical History COVID Social History Social History Housing: House Patient Tobacco Use Status: Former Tobacco user Quit Date: 2020 Tobacco use type: Cigarette Years Smoked: 20 years e-Cigarette/Vaping Use: Never Used Second Hand Smoke Exposure: No Use of substances other than those prescribed or required for medical reasons: No Are you DNR?: No Advance Directives: No Advance Directives Information Provided: Yes Advance Directives on File: No Current occupational status: employed Cognitive needs: No Hearing needs: No Vision needs: No Meds Allergies Allergy/AdvReac Type Severity Reaction Status Date / Time No Known Allergies Allergy Verified 04/03/23 13:14 Exam Narrative Narrative: Exercise stress 03/2023 Protocol: DILLAN Max HR: 150 BPM 87% of Pred: 171 BPM Max BP: 130/072 mmHG Max Work Load: 10.6 METS Exercise stress test exercise 9 min 19 sec of Dillan protocol achieving 87% MPHR, without anginal symptoms, without arrhythmias, with normotesnive response to exercise, without EKG changes. Test reviewed with Dr. Moreland Assessment and Plan Assessment Anesthesia Assessment: Chart Reviewed Documented by User: Melissa Jacome MD 08/08/23 08:19 [facility] Past Medical History Medical History COVID Family History Family history of problems with anesthesia: No Surgical History History of Problems with Anesthesia: No Social History Social History Housing: House Patient Tobacco Use Status: Former Tobacco user Quit Date: 2020 Tobacco use type: Cigarette Years Smoked: 20 years e-Cigarette/Vaping Use: Never Used Second Hand Smoke Exposure: No Use of substances other than those prescribed or required for medical reasons: No Are you DNR?: No Advance Directives: No Advance Directives Information Provided: Yes Advance Directives on File: No Current occupational status: employed Cognitive needs: No Hearing needs: No Vision needs: No Meds Allergies Allergy/AdvReac Type Severity Reaction Status Date / Time No Known Allergies Allergy Verified 04/03/23 13:14 Exam Height,Weight and Vital Signs: Height 5 ft 9 in Weight 81.193 kg Vital Signs Temp Pulse Resp BP Pulse Ox O2 Del Method 08/08/23 08:14 97.6 F 61 16 99/65 100 Room Air Pertinent Lab Results Pertinent Lab Results: Lab Results 08/08/23 Range/Units 07:58 Urine Test NEGATIVE (NEGATIVE) Airway Mallampati Class: II TM Dist: >3cm Neck ROM: Full Loose/Missing/Broken Teeth: No (Denies broken, loose, missing teeth) Heart: RRR Lungs: CTAB Assessment and Plan Assessment Anesthesia Assessment: Anesthesia Plan Discussed and Chart Reviewed Final Anesthetic Review Family History of Problems with Anesthesia: No History of Problems with Anesthesia: No NPO: Yes ASA Class: II Final Preanesthetic Review: No Changes in Pt Med Stat, Meds/Allgs Chart Reviewed, Consent Obtained/Reviewed and Anes Risks/Benef Reviewed Patient Risk: Low Procedure Risk: Low Assessment/Block/Sedation in SS: Assess/Block/Sedation-SS Anesthetic Plan Anesthetic Plan: TIVA Disposition: Standard PACU
[2023-08-08 07:54] VITALS: BMI 26.4
--- NOTE | 2023-08-08 07:58 | MHC.SHP ---
Pre-Procedural Eval Section A - 24 Hr Update-Section A only Date of Service: 08/08/23 Section B - Complete if H&P > 30 days Chief Complaint: Encounter for screening for malignant neoplasm of Relevant Family History (Specify if Yes): No Relevant Social History: None Present Medications: see Short Stay Collaborative assessment Medical History: Significant History (covid, anxiety ) History of Previous Operations: Relevant previous surgery/procedure and date(s) (lipoma removal ) Allergies: Allergies Allergy/AdvReac Type Severity Reaction Status Date / Time No Known Allergies Allergy Verified 04/03/23 13:14 Review of Systems Sugical H&P ROS: Negative: Constitution, Cardiovascular, Respiratory, Neurological, Psychiatric, Hem-Onc, Allergic/Immunologic, Gastrointestinal, Genitourinary, Musculoskeletal, Integumentary, Endocrine and Eyes/Ears/Nose/Throat Exam Surgical H&P Exam: Normal: HEENT, Normal: Heart, Normal: Lungs, Normal: Extremities, Normal: Abdomen, Normal: Skin and Normal: Neurological Plan Diagnosis/Plan: Unchanged I have reviewed the history and physical and performed a pertinent physical examination on my patient. No changes have occurred unless specified. Time Spent With Patient Time: Total time managing care of this patient today ____ minutes.
[2023-08-08 08:07] LABS: UPreg QC Valid YES; Urine Pregnancy NEGATIVE (NEGATIVE)
[2023-08-08 08:14] VITALS: BP 99/65; PULSE 61; RESP 16; TEMP 36.4; O2SAT 100
--- NOTE | 2023-08-08 08:49 | HO.OPN-COLON ---
Colonoscopy Operative Note Operative Note Date of Service: 08/08/23 Narrative: Operative Information Procedure Description: Colonoscopy Indication: screening Anesthesia: MAC COLONOSCOPY Instrument: Olympus variable stiffness pediatric scope 190L Colonoscopy Monitoring: Vital signs and clinical assessment, continuous EKG monitoring, Pulse oximetry, Carbon Dioxide monitoring and blood pressure monitoring were done throughout the procedure. Colon withdrawal time was 12 minutes. Procedure: The patient was placed in the left lateral decubitis position and pre-procedure medications were administered. After a digital rectal examination of the ano-rectum, the video colonoscope was inserted into the rectum and advanced through the colon to the cecum/TI. The colonoscope was slowly withdrawn in a retrograde panoramic fashion and the colon mucosa was carefully examined including a retroflexed view of the rectum. Findings and interventions are described below. Procedure Difficulty: medium, pressure applied Findings: Terminal Ileum-normal Cecum:normal, Right sided retroflexion- normal Ascending Colon: normal Transverse Colon -normal Descending Colon:normal Sigmoid Colon: normal Rectum: Retroflexion with small internal hemorrhoids seen, grade I, 4-5 mm sessile polyp removed with cold forceps Anorectum - normal Intervention: cold forceps Colon preparation: [place] Bowel Preparation Scale Right colon; 2 Transverse colon: 2 Left colon; 2 (0 = Unprepared colon segment with mucosa not seen due to solid stool that cannot be cleared. 1 = Portion of mucosa of the colon segment seen, but other areas of the colon segment not well seen due to staining, residual stool and/or opaque liquid. 2 = Minor amount of residual staining, small fragments of stool and/or opaque liquid, but mucosa of colon segment seen well. 3 = Entire mucosa of colon segment seen well with no residual staining, small fragments of stool or opaque liquid) Impression and Post Procedure Diagnosis: internal hemorrhoids Plan: High fiber diet leaflet Avoid straining at stool, epsom salts and sitz bath, anusol supps or cream Repeat Colonoscopy in 10 years or earlier if clinically indicated Above findings were reviewed with the patient and relevant handouts were provided if indicated.
[2023-08-08 08:58] VITALS: BP 103/64; PULSE 66; RESP 12; TEMP 36.3; O2SAT 99
[2023-08-08 09:13] VITALS: BP 115/81; PULSE 62; RESP 15; O2SAT 99
[2023-08-08 09:19] VITALS: TEMP 36.6
== END 2023-08-08 10:03 | disposition home or self-care (01) ==
PROVIDERS: Nurse Practitioner; PCP Internal Medicine; Visit Provider Internal Medicine Gastroenterology
PROC: 0DJD8ZZ Inspection of Lower Intestinal Tract, Via Natural or Artificial Opening Endoscopic (ICD-10-PCS; CPT 45378; principal; 2023-08-08 08:40)
DX: Z12.11 Encounter for screening for malignant neoplasm of colon (principal); K62.1 Rectal polyp; K64.0 First degree hemorrhoids
CPT/HCPCS: 45380; 81025; 88305; J2704

== ENCOUNTER → 2023-08-08 07:34 | Outpatient (BNV) | payer OTHER, SELFPAY | PROVIDERS: PCP Internal Medicine; Visit Provider Internal Medicine Gastroenterology | DX: Z12.11 Encounter for screening for malignant neoplasm of colon (principal); K62.1 Rectal polyp; K64.0 First degree hemorrhoids | CPT/HCPCS: 45380 ==

== ENCOUNTER → 2023-12-20 08:42 | Outpatient (BNVA) | payer OTHER, SELFPAY | PROVIDERS: PCP Internal Medicine; Visit Provider Internal Medicine ==

== ENCOUNTER 2024-04-28 08:20 | Outpatient (REF) | payer OTHER, SELFPAY | END 2024-04-28 08:21 | disposition home or self-care (01) | LOC: HO.MAMMO 08:20 | PROVIDERS: PCP Internal Medicine; Visit Provider Internal Medicine | DX: Z13.89 Encounter for screening for other disorder (principal) ==

== ENCOUNTER → 2024-05-26 07:45 | Outpatient (BNV) | payer OTHER, SELFPAY | PROVIDERS: PCP Internal Medicine; Visit Provider Internal Medicine | DX: Z12.31 Encounter for screening mammogram for malignant neoplasm of breast (principal) | CPT/HCPCS: 77063; 77067 ==

== ENCOUNTER 2024-05-26 08:11 | Outpatient (REF) | payer OTHER, SELFPAY ==
--- OUTSIDE RECORDS SUMMARY | 2024-05-26 08:19 | XMS_ITS | Encounter Summary ---
Author Organization [facility] Address [address] [place] [phone] Care Team Providers Care Javascript Software Engineer Name Role Phone Katie Carroll MD Primary Care Provider [phone] Reason for Referral * Consultation (Routine) - Pending Review Specialty Diagnoses / Procedures Referred By Bernardo dalton Referred To Contact Physical Therapy / Pediatric Physical Therapy Diagnoses Dyspareunia in female Marcia Owusu CNM [address] [place] [address] Phone: tel: fax: Referral ID Status Reason Start Date Expiration Date Visits Requested Visits Authorized [id number] Pending Review Specialty Services Required 05/20/2024 05/20/2025 1 1 Reason for Visit * Reason Comments Annual Exam Encounter Details Date Type Department Care Team ([facility] Contact Info) Description 05/20/2024 11:15 AM EDT [facility] [address] [place] [address] Marcia Owusu CNM [address] [place] [address] Encounter for gynecological examination without abnormal finding (Primary Dx); Dyspareunia in female; Screening for cervical cancer; IUD check up Social History Tobacco Use Types Packs/Day Years Used Date Smoking Tobacco: Never Cigarettes Smokeless Tobacco: Never Alcohol Use Standard Drinks/Week Comments Not Currently 0 (1 standard drink = 0.6 oz pur e alcohol) Comments No Sex and Gender Information Value Date Recorded Sex Assigned at Not on file Legal Sex Female 3:16 AM EST Gender Identity Not on file Sexual Orientation Not on file 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 Not on file Not on file Not on file documented as of this encounter Last Filed Vital Signs Vital Sign Reading Time Taken Comments Blood Pressure 100/66 05/20/2024 11:34 AM EDT Pulse 75 05/20/2024 11:34 AM EDT Temperature - - Respiratory Rate 18 05/20/2024 11:34 AM EDT Oxygen Saturation - - Inhaled Oxygen Concentration - - Weight 84.2 kg (185 lb 9.6 oz) 05/20/2024 11:34 AM EDT Height 175.3 cm (5' 9 ) 05/20/2024 11:34 AM EDT Body Mass Index 27.41 05/20/2024 11:34 AM EDT documented in this encounter Progress Notes * Marcia Owusu CNM - 05/20/2024 11:15 AM EDT CHIEF COMPLAINT: Chief Complaint Patient presents with Annual Exam IDENTIFIER:Milagro REEVES is a 48 y.o. female HPI: Milagro was last seen in 2020. She has been in state of good health since her last exam. She has concerns about vaginal dryness and painful intercouse. She reports long standing hx of pain with intercourse, about 13 years, noticed after she gave to her daughter 13 years ago, pain only when having intercourse . No LMP recorded (lmp unknown). (Menstrual status: IUD). Amenorrheic with IUD. Sheis sexually active with , and agreeable to GC &CT testing, she declines serum STD testing. She is currently using Mirena IUD inserted 07/28/20 for BC and is happy with this she would like to continue with this form of BC. And 's vasectomy Last pap: No results found for: STOCK ROOM MANAGER Lab Results Component Value Date HMPAP Negative, Abstracted 04/27/2019 No results found for: CYTOSPEC No results found for: PAP No results found for: HPV No results found for: INTERPGYN Screening Mammogram: Goes to [facility] - may 2023 BIRADS 1 neg Colonoscopy - 2023 neg I have reviewed the following sections of the chart: Past Medical History, Surgical History, OB/GYNHistory, Social History and Family History, Allergies, and Medications ROS: GENERAL: No malaise, significant weight loss or fever RESPIRATORY: No cough, wheezing or shortness of breath CARDIOVASCULAR: No chest pain, leg swelling or palpitations BREAST: No lumps, discharge, pain or change in skin GI: No abdominal discomfort, blood in stools or black stools : No dysuria, frequency or incontinence STOCK ROOM MANAGER: No abnormal vaginal bleeding or abnormal vaginal discharge. MUSCULOSKELETAL: No joint pain or swelling, back pain, or muscle pain. SKIN: No lesions, rash or itching PSYCH: No sleep disturbance, mood disorder or recent psychosocial stressors. ENDOCRINE: No cold or heat intolerance, polyuria, polydipsia or goiter. NEURO: No persistent headache, syncope, seizures, weakness or numbness PAST MEDICAL HISTORY: No past medical history on file. OB HISTORY: OB History Para Term AB Living 4 3 3 1 3 SAB IAB Ectopic Multiple Live Births 1 3 # Outcome Date GA Lbr Renato/2nd Weight Sex Type Anes PTL Lv 4 SAB 3 Term Vag-Spont TYRONE 2 Term Vag-Spont TYRONE 1 Term Vag-Spont TYRONE SOCIAL HISTORY: Social History Tobacco Use Smoking status: Never Smokeless tobacco: Never Substance Use Topics Alcohol use: Not Currently FAMILY HISTORY: No family history on file. ACTIVE MEDICATIONS: Outpatient Medications Marked as Taking for the 05/20/24 encounter (Office Visit) with Marcia Owusu CNM Medication Sig Dispense Refill levonorgestreL (MIRENA) 21 mcg/24hr (up to 8 yrs) 52 mg IUD 1 Device (1 each total) by intrauterineroute 1 (one) time. ALLERGIES: No Known Allergies PHYSICAL EXAM: Visit Vitals BP 100/66 Pulse 75 Resp 18 Ht 1.753 m (69 ) Wt 84.2 kg (185 lb 9.6 oz) LMP (LMP Unknown) BMI 27.41 kg/m?? OB Status IUD Smoking Status Never BSA 2 m?? APPEARANCE: Alert and in no acute distress, Normal, healthy BREAST (FEMALE): The breasts are symmetric with no skin changes. There is no evidence of infection.There is no supraclavicular or axillary adenopathy. There are no dominant masses in the either breast. The nipples appear healthy with no discharge. LYMPH NODES: Grossly normal ABDOMEN: Soft, non-tender, without organomegaly or palpable masses STOCK ROOM MANAGER (FEMALE): EGBUS within normal limits, normal vagina and vulva, normal cervix without lesions, polyps or tenderness, multiparous os, uterus normal size, shape, consistency, no mass or tenderness, pap smear schedule reviewed with patient, pap smear done today. IUD strings visible. BACK: No pain to palpation with good flexion and extension EXTREMITIES: Extremities warm and well perfused without clubbing, cyanosis, or edema NEURO: Awake, alert and oriented x 3 SKIN: Skin color, texture, turgor normal. No rashes or lesions. IMPRESSION: 1. Encounter for gynecological examination without abnormal finding 2. Dyspareunia in female Ambulatory referral to Pediatric Physical Therapy and Athletic Training 3. Screening for cervical cancer Pap smear POC , urine manually resulted 4. IUD check up PLAN: During the visit, the following areas of concern were addressed: Monitoring of the menstrual cycle Contraception - continue with Mirena IUD. Discussed painful intercourse - PFPT referral placed, will try vaginal moisturizer. Regular exercise Healthy lifestyle STDs and strategies to avoid exposure - agrees to GC/CT Breast self-examination on a regular basis, Importance of yearly mammography after age 40 - UTD, completes to [facility]. Regular gynecologic examinations and frequency of Pap smears - collected today Screening strategies for colon cancer after age 50 - UTD, completed in 2023 Labs ordered/performed: Pap smear GC/CT Imaging ordered/performed: None Patient to RTO in 1 year for annual exam. Vasile Owusu CNM documented in this encounter Plan of Treatment Scheduled Referrals Name Type Priority Associated Diagnoses Order Schedule Ambulatory referral to Pediatric Physical Therapy and Athletic Training Outpatient Referral Routine Dyspareunia in female Expected: 05/20/2024, Expires: 05/20/2025 documented as of this encounter Procedures Procedure Name Priority Date/Time Associated Diagnosis Comments POC , URINE DIAGNOSTIC Routine 05/20/2024 1:32 PM EDT Screening for cervical cancer CHLAMYDIA TRACHOMATIS AND NEISSERIA GONORRHOEAE BY TMA, THINPREP Routine 05/20/2024 12:19 PM EDT Screening for cervical cancer HPV WITH REFLEX GENOTYPE Routine 05/20/2024 12:19 PM EDT Screening for cervical cancer PAP SMEAR Routine 05/20/2024 12:19 PM EDT Screening for cervical cancer documented in this encounter Results * POC , urine manually resulted (05/20/2024 1:32 PM EDT) HCG, Ur POC Negative Negative POC hCG Int QC Pass? Yes Yes Urine Urine specimen obtained by clean catch procedure / Unknown 05/20/2024 1:32 PM EDT us Marcia Owusu CNM POINT OF CARE TEST ENTER/ED IT ORDERABLES Final Result * HPV with reflex genotype (05/20/2024 12:19 PM EDT) HPV Negative Negative LAB MICROBIOLOGY METHOD 05/21/2024 1:46 PM EDT [facility] Brushing/Spatula Cervix uteri structure / Unknown 05/20/2024 12:19 PM EDT 05/21/2024 6:12 AM EDT us Marcia BERNAL [facility] MOLECULAR DIAGNOSTICS O RDERABLES Final Result [facility] [address] [place] [address], * Chlamydia trachomatis and neisseria gonorrhoeae by tma, thinprep (05/20/2024 12:19 PM EDT) N. gonorrhoeae, RNA Probe Negative Negative LAB MICROBIOLOGY METHOD 05/21/2024 12:20 PM EDT [facility] Chlamydia, RNA Probe Negative Negative LAB MICROBIOLOGY METHOD 05/21/2024 12:20 PM EDT [facility] Brushing/Spatula Cervix uteri structure / Unknown 05/20/2024 12:19 PM EDT 05/21/2024 6:12 AM EDT Marciakevin Owusu [facility] CYTOLOGY ORDERABLES Fin al Result Performing Organization Address City/[facility]/ZIP Co de Phone Number [facility] [address] [place] [address], [place] [phone] * Pap smear (05/20/2024 12:19 PM EDT) Interpretation Negative for intraepithelial lesion or malignancy 05/22/2024 3:54 PM EDT [facility] General Categorization Negative 05/22/2024 3:54 PM EDT [facility] Specimen Adequacy Satisfactory for evaluation, endocervical/echavarria sformation zone component present 05/22/2024 3:54 PM EDT [facility] Pap Methodology Liquid Based Pap Test 05/22/2024 3:54 PM EDT [facility] Disclaimer The Pap test is a screening test which carries an inherent false negative rate. These test results should be correlated with the patient's clinical findings and history. This Pap test was processed using an automated screening system. Technical cytopathology services provided by [facility], at [address] [place] [address] (CLIA # [id number]/Justina White MD, Correctional Treatment Specialist.) 05/22/2024 3:54 PM EDT [facility] Console Pap Interpretation Reported 05/22/2024 3:54 PM EDT [facility] Brushing/Spatula Cervix uteri structure / Unknown 05/20/2024 12:19 PM EDT 05/20/2024 12:19 PM EDT Marciakevin Owusu [facility] CYTOLOGY ORDERABLES Fin al Result [facility] [address] [place] [address], documented in this encounter Visit Diagnoses Diagnosis Encounter for gynecological examination without abnormal finding- Primary Dyspareunia in female Screening for cervical cancer Screening for malignant neoplasm of the cervix IUD check up documented in this encounter Care Teams Javascript Software Engineer Relationship Specialty Start Date End Date Katie Carroll MD [address] [place] [address] PCP - General Internal Medicine 01/30/19 documented as of this encounter
--- OUTSIDE RECORDS SUMMARY | 2024-05-26 08:19 | XMS_ITS | Clinical Summary ---
Author Organization [place] [address] [address]ovanna muniz [facility] Building Address [address] [place] [address] Phone Care Team Providers Care Glass Vial Filler Name Role Phone Katie Carroll MD Primary Care Provider [phone] Allergies No known active allergies Medications levonorgestreL (MIRENA) 21 mcg/24hr (up to 8 yrs) 52 mg IUD 1 Device (1 each total) by intrauterine route 1 (one) time. 1 07/03/19 26 Active glucosamine HCl 500 mg tablet Take by mouth. A ctive ferrous sulfate 325 mg (65 mg elemental iron) tablet Take by mouth. Activ e multivit-min/fe rrous fumarate (MULTI VITAMIN ORAL) Take by mouth. Activ e Active Problems Problem Noted Date Diagnosed Date Depression 09/09/2013 Encounters Date Type Department Care Team Description 05/20/2024 11:15 AM EDT Office Visit Obstetrics and Gynecology - [address] [phone] Marcia Owusu CNM Encounter for gynecological examination without abnormal finding (Primary Dx); Dyspareunia in female; Screening for cervical cancer; IUD check up 05/05/2024 Telephone Obstetrics and Gynecology - [address] [phone] Susanna Mcnulty RN from Last 3 Months Surgical History Surgery Date Site/Laterality Comments HERNIA REPAIR PROCEDURE: REPAIR UMBILICAL HERNIA COLONOSCOPY 2023 LIPOMA RESECTION Medical History Medical History Date Comments Covid Family History Medical History Relation Name Comments Seizures Brother 1 Diabetes Brother 2 Seizures Brother 2 COPD Father Parkinsonism Father msa Father Fibromyalgia Mother Multiple sclerosis Mother Diabetes Paternal Grandfather Diabetes Sister Breast cancer Neg Hx Ovarian cancer Neg Hx Uterine cancer Neg Hx Relation Name Status Comments Brother 1 Alive Brother 2 Alive Daughter 1 Alive Daughter 2 Alive Daughter 3 Alive Father Alive Mother Alive Paternal Grandfather Sister Alive Social History Tobacco Use Types Packs/Day Years [...] 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 Not on file Not on file Not on file Obstetrics History Para Term AB IAB SAB Ectopic Multiple Livin g Live Births 4 3 3 1 1 3 3 Date Outcome GA Total Labor Labor/2nd/3rd Weight Sex Type Anes PTL Genesis A1 A5 Name Clin Term Vag-S pont Living Term Vag-S pont Living Term Vag-S pont Living SAB Last Filed Vital Signs Vital Sign Reading [...] Mass Index 27.41 05/20/2024 11:34 AM EDT Plan of Treatment Health Maintenance Due Date Last Done Comments Breast Cancer Screening 1973 DTaP,Tdap,and Td Vaccines (1 - Tdap) 1992 Hepatitis B Vaccines (1 of 3 - 19+ 3-dose series) 1992 Pneumococcal Vaccine: 50+ Years (1 of 1 - PCV) 08/11/2023 Zoster Vaccines (1 of 2) 08/11/2023 COVID-19 Vaccine ( - 2023-2 5 season) 2023 Influenza Vaccine (#1) 2023 Colorectal Cancer Screening: Colonoscopy 04/28/2024 Depression Screening 04/28/2024 HIV Screening 04/28/2024 Hepatitis C Screening 04/28/2024 Social Influencers of Health Screening 04/28/2024 Cervical Cancer Screening: HPV 05/20/2029 0 05/20/2024, 04/27/2019 HIB Vaccines Aged Out No longer eligi ble based on patient's age to complete this topic HPV Vaccines Aged Out No longer eligi ble based on patient's age to complete this topic Hepatitis A Vaccines Aged Out No long er eligible based on patient's age to complete this topic IPV Vaccines Aged Out No longer eligi ble based on patient's age to complete this topic MMR Vaccines Aged Out No longer eligi ble based on patient's age to complete this topic Meningococcal ACWY Vaccine Aged Out N o longer eligible based on patient's age to complete this topic Meningococcal B Vacine Aged Out No lo nger eligible based on patient's age to complete this topic Pneumococcal Vaccine: Pediatrics (0 to 5 Years) and At-Risk Patients (6 to 64 Years) Aged Out No longer eligible b ased on patient's age to complete this topic RSV Immunization Patients Under 20 months Aged Out No longer eligible b ased on patient's age to complete this topic Varicella Vaccines Aged Out No longer eligible based on patient's age to complete this topic Procedures Procedure Name Priority Date/Time Associated Diagnosis Comments POC , URINE DIAGNOSTIC Routine 05/20/2024 1:32 PM EDT Screening for cervical cancer CHLAMYDIA TRACHOMATIS AND NEISSERIA GONORRHOEAE BY TMA, THINPREP Routine 05/20/2024 12:19 PM EDT Screening for cervical cancer PAP SMEAR Routine 05/20/2024 12:19 PM EDT Screening for cervical cancer HPV WITH REFLEX GENOTYPE Routine 05/20/2024 12:19 PM EDT Screening for cervical cancer from Last 3 Months Results * POC , urine manually resulted (05/20/2024 1:32 PM EDT) HCG, Ur POC Negative Negative POC hCG Int QC Pass? Yes Yes Urine Urine specimen obtained by clean catch procedure / Unknown 05/20/2024 1:32 PM EDT us Marcia Owusu [facility] POINT OF CARE TEST ENTER/ED IT ORDERABLES Final Result * Chlamydia trachomatis and neisseria gonorrhoeae by tma, thinprep (05/20/2024 12:19 PM EDT) N. gonorrhoeae, RNA Probe Negative Negative LAB MICROBIOLOGY METHOD 05/21/2024 12:20 PM EDT [facility] Chlamydia, RNA Probe Negative Negative LAB MICROBIOLOGY METHOD 05/21/2024 12:20 PM EDT [facility] Brushing/Spatula Cervix uteri structure / Unknown 05/20/2024 12:19 PM EDT 05/21/2024 6:12 AM EDT Marcia Owusu [facility] CYTOLOGY ORDERABLES Fin al Result [facility] [address] [place] [address], [place] [phone] * HPV with reflex genotype (05/20/2024 12:19 PM EDT) Pathologist [facility] HPV Negative Negative LAB MICROBIOLOGY METHOD 05/21/2024 1:46 PM EDT [facility] Brushing/Spatula Cervix uteri structure / Unknown 05/20/2024 12:19 PM EDT 05/21/2024 6:12 AM EDT us Marcia Owusu [facility] MOLECULAR DIAGNOSTICS O RDERABLES Final Result [facility] [address] [place] [address], [place] [phone] * Pap smear (05/20/2024 12:19 PM EDT) Interpretation Negative for intraepithelial lesion or malignancy 05/22/2024 3:54 PM EDT [facility] General Categorization Negative 05/22/2024 3:54 PM EDT [facility] Specimen Adequacy Satisfactory for evaluation, endocervical/echavarria sformation zone component present 05/22/2024 3:54 PM EDT [facility] Pap Methodology Liquid Based Pap Test 05/22/2024 3:54 PM EDT [facility] Disclaimer The Pap test is a screening test which carries an inherent false negative rate. These test results should be correlated with the patient's clinical findings and history. This Pap test was processed using an automated screening system. Technical cytopathology services provided by [facility], at [address] [place] [address] (CLIA # [id number]/Justina White MD, Clubhouse Attendant.) 05/22/2024 3:54 PM EDT [facility] Console Pap Interpretation Reported 05/22/2024 3:54 PM EDT [facility] Brushing/Spatula Cervix uteri structure / Unknown 05/20/2024 12:19 PM EDT 05/20/2024 12:19 PM EDT Marcia Owusu [facility] CYTOLOGY ORDERABLES Fin al Result [facility] [address] [place] [address], from Last 3 Months Insurance [employer] Care Teams Glass Vial Filler Relationship Specialty Start Date End Date Katie Carroll MD [address] [place] [address] PCP - General Internal Medicine 01/30/19
--- OUTSIDE RECORDS SUMMARY | 2024-05-26 08:19 | XMS_ITS | Encounter Summary ---
Author Organization [facility] Address [address] [place] [address] Care Team Providers Care Painter Barrel Name Role Phone Katie Carroll MD Primary Care Provider [phone] Encounter Details Date Type Department Care Team ([facility] Contact Info) Description 05/05/2024 Telephone Obstetrics and Gynecology - [place] [address] [place] [phone] Susanna Mcnulty RN Social History Tobacco Use Types Packs/Day Years Used Date Smoking Tobacco: Never Cigarettes Smokeless Tobacco: Never Alcohol Use Standard Drinks/Week Comments Never 0 (1 standard drink = 0.6 oz pur e alcohol) Comments Unknown Sex and Gender Information Value Date Recorded Sex Assigned at Not on file Legal Sex Female 3:16 AM EST Gender Identity Not on file Sexual Orientation Not on file documented as of this encounter Progress Notes * Susanna Mcnulty RN - 05/05/2024 4:12 PM EST Patient showed up at wrong office -was scheduled at [facility] for 300pm. Showed up in [place] at 348pm. As a courtesy , I did back office test for pt. It was negative., Pt aware of upcoming Annual visit scheduled in [facility] office. documented in this encounter Plan of Treatment Not on file documented as of this encounter Visit Diagnoses Not on filedocumented in this encounter Care Teams Painter Barrel Relationship Specialty Start Date End Date Katie Carroll MD [address] [place] [phone] PCP - General Internal Medicine 01/30/19 documented as of this encounter
== END 2024-05-26 08:12 | disposition home or self-care (01) ==
LOC: HO.MAMMO 08:11
PROVIDERS: PCP Internal Medicine; Visit Provider Internal Medicine
DX: Z12.31 Encounter for screening mammogram for malignant neoplasm of breast (principal)
CPT/HCPCS: 77063; 77067

== ENCOUNTER 2024-11-26 08:00 | Outpatient (AMB) | payer OTHER, SELFPAY ==
[2024-11-26 08:04] VITALS: BP 112/60; PULSE 73; RESP 16; O2SAT 96; BMI 27.9
--- NOTE | 2024-11-26 08:04 | AM.OFFWIN_ITS ---
Intake Vital Signs 11/26/24 08:04 Height 5 ft 9 in Weight 189 lb BMI 27.9 BP 112/60 Blood Pressure Location Lt brachial Position Sitting Respiration 16 Pulse 73 Pulse Source Pulse Oximeter Pulse Oximetry (%) 96 Oxygen Delivery Method Room Air Intake Visit Reasons: EP-b/l ear pain, headaches Patient Tobacco Use Status: Former Tobacco user Seasonal Clerk Required: No Accompanied by: Self / Same As Patient Allergies No Known Allergies Allergy (Verified 11/26/24 08:04) HPI HPI Comments History of Present Illness Details History of Present Illness - The patient is a 49-year-old female pr esenting with ear pain and pressure following a recent flight. - The patient experienced ear pain and p ressure in both ears after a flight, despite taking measures such as chewing gum to alleviate pressure. - Symptoms include a headache and a sens ation of being blocked up, which worsened after returning from [place]. - She hears muffled like she is under wa ter. - The patient reports a history of conge stion and allergies, but no recent exposure to water activities. - She denies hearing loss, [place], dizziness , fever, chills, sore throat, cough, discharge or bleeding. Physical Exam General: Cooperative, healthy appearing, comfortable, no acute distress and well developed Orientation: Patient oriented x3 Ears: No tragus or mastoid tenderness noted. Canals are clear. Blood noted on the TM bilaterally. TM otherwise clear, not bulging or red. Nose: Normal external nose present Face and sinus: Normal facial exam Neck: Normal visual inspection and Yes full ROM Respiratory: Normal respiratory effort and able to speak in complete sentences. Clear to auscultation bilaterally Cardiovascular: Regular rate and rhythm. Normal S1 and S2 Patient was informed and verbally consented to the use of an ambient scribe for clinic note documentation during this visit [facility] Medical History COVID Social History Housing: House Patient Tobacco Use Status: Former Tobacco user Tobacco use type: Cigarette Years Smoked: 20 years e-Cigarette/Vaping Use: Never Used Second Hand Smoke Exposure: No Current occupational status: employed Cognitive needs: No Hearing needs: No Vision needs: No Review of Systems Const All systems reviewed & are unremarkable except as noted in HPI and below Physical Exam Vital Signs: Last Vital Signs Pulse 73 11/26/24 08:04 Resp 16 11/26/24 08:04 BP 112/60 11/26/24 08:04 Pulse Ox 96 11/26/24 08:04 Oxygen Delivery Method Room Air 11/26/24 08:04 BMI result Body Mass Index 27.9 Office Meds prednisone 20 mg tablet Performing Provider: Chelle Balderas PA-C Performing Location: [facility] Administered by: Chelle Balderas PA-C on 11/26/24 08:33 Dose Route Admin Location Dispensed Lot Number Expiration Date NDC Career Education Teacher 20 mg PO 1 tab [id number] 05/08/27 Assessment & Plan Assessment & Plan (1) Ear pain: Code(s): H92.09 - Otalgia, unspecified ear Qualifiers: Laterality: bilateral Qualified Code(s): H92.03 - Otalgia, bilateral Plan Most likely otic barotrauma vs hemotympaneum vs TM rupture vs OM vs ET dysfunction plan - will give her predisone 20 mg in the office - will prescribe her 20 mg for 4 days - flonase and zyrtec D daily - watch for discharge and blood in the ear - tylenol or motrin as needed for pain - f/u with PCP Orders: Orders AMB Prednisone Adult Dose Today H92.09 - Otalgia, unspecified ear Medications: New cetirizine-pseudoephedrine 5-120 mg ER 1 tab PO BID 14 tabs 0RF 7 days fluticasone propionate 50 mcg/actuation administer into each nostril 1 spray intranasal Q12H 16 grams 0RF prednisone 20 mg PO daily 4 tabs 0RF 4 days Coding Level of Care Code Est Pt Level 3 (73257) Diagnoses Otalgia of both ears H92.03 Laterality: bilateral
--- OUTSIDE RECORDS SUMMARY | 2024-11-26 08:04 | XMS_ITS | Clinical Summary ---
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 Para Term AB IAB SAB Ectopic Multiple Livin g Live Births 4 3 3 3 3 Date Outcome GA Total Labor Labor/2nd/3rd Weight Sex Type Anes PTL Genesis A1 A5 Name Clin Term Vag-S pont Living Term Vag-S pont Living Term Vag-S pont Living Last Filed Vital Signs Vital Sign Reading [...] 08/11/2023 Zoster Vaccines (1 of 2) 08/11/2023 Depression Screening 03/11/2024 Colorectal Cancer Screening: Colonoscopy 04/28/2024 HIV Screening 04/28/2024 Hepatitis C Screening 04/28/2024 Social Influencers of Health Screening 04/28/2024 COVID-19 Vaccine (1 - 2023-2 5 season) 2024 Influenza Vaccine (#1) 2024 Cervical Cancer Screening: HPV 05/20/2029 0 05/20/2024, [...] age to complete this topic Meningococcal B Vaccine Aged Out No l onger eligible based on patient's age to complete this topic RSV Immunization Patients Under 20 months Aged Out No longer eligible b ased on patient's age to complete this topic Varicella Vaccines Aged Out No longer eligible based on patient's age to complete this topic Procedures Procedure Name Priority Date/Time Associated Diagnosis Comments HPV WITH REFLEX GENOTYPE Routine 05/20/2024 12:19 PM EDT Screening for cervical cancer from Last 3 Months or Most Recently Relevant to Health Maintenance Results * HPV with reflex genotype (05/20/2024 12:19 PM EDT) HPV Negative Negative LAB MICROBIOLOGY METHOD 05/21/2024 1:[address] [facility] Brushing/Spatula Cervix uteri structure / Unknown 05/20/2024 12:19 PM EDT 05/21/2024 6:12 AM EDT Marcia BERNAL LAB MOLECULAR DIAGNOSTICS O RDERABLES Final Result [facility] [address] [place] [address], from Last 3 Months or Most Recently Relevant to Health Maintenance Insurance [employer] Care Teams Chain Testing Machine Operator Relationship Specialty Start Date End Date Katie Carroll MD PCP - General Internal Medicine 01/30/19
--- OUTSIDE RECORDS SUMMARY | 2024-11-26 08:04 | XMS_ITS | Clinical Summary ---
Author Organization [facility] Address [address] [address] Phone Care Team Providers Care Roll Weigher Name Role Phone Unknown, Unknown Primary Care Provider Rashaad duffy Allergies No known active allergies Medications No known medications Social History Tobacco Use Types Packs/Day Years Used Date Smoking Tobacco: Former Smokeless Tobacco: Never Alcohol Use Standard Drinks/Week Comments Never 0 (1 standard drink = 0.6 oz pur e alcohol) Education Answer Date Recorded Are you interested in more education? Not on zachary e 07/07/2022 Are you concerned about learning? Not on file 07/07/2022 No 07/07/2022 No 07/07/2022 Digital Access Answer Date Recorded No 08/05/2022 No 08/05/2022 No 08/05/2022 Reliable internet access at home? Not on file 08/05/2022 Device with a working camera? Not on file Comments Unknown Sex and Gender Information Value Date Recorded Sex Assigned at Not on file Legal Sex Female 12:15 PM EDT Gender Identity Not on file Sexual Orientation Not on file Last Filed Vital Signs Vital Sign Reading Time Taken Comments Blood Pressure 96/68 10/30/2020 12:51 PM EDT Pulse 79 10/30/2020 12:51 PM EDT Temperature 36.1 C (96.9 F) 10/30/2020 12:51 PM EDT Respiratory Rate 16 10/30/2020 12:51 PM EDT Oxygen Saturation 99% 10/30/2020 12:51 PM EDT Inhaled Oxygen Concentration - - Weight 77.1 kg (170 lb) 10/30/2020 12:51 PM EDT Height 175.3 cm (5' 9 ) 10/30/2020 12:51 PM EDT Body Mass Index 25.1 10/30/2020 12:51 PM EDT Plan of Treatment Health Maintenance Due Date Last Done Comments Adult Td,Tdap Booster 1973 LIPID PANEL 1973 DEPRESSION SCREENING 1985 SMOKING Hx and SMOKELESS TOB ACCO SCREENING 1986 HEPATITIS C SCREENING 08/11/1991 HIV ONE-TIME SCREENING (18-6 5 YEARS) 08/11/1991 PAP SMEAR 1994 MAMMOGRAM 2013 COLOGUARD 2018 COLONOSCOPY 2018 COLORECTAL CANCER SCREENING 2018 FIT TEST 2018 FOBT 2018 SIGMOIDOSCOPY 2018 VIRTUAL COLONOSCOPY 2018 PNEUMOCOCCAL VACCINES (50+ y ears) (1 of 1 - PCV) 08/11/2023 ZOSTER VACCINES (1 of 2) 08/11/2023 INFLUENZA VACCINE (#1) 2024 COVID-19 VACCINE ( - 2023-2 5 season) 2024 HEPATITIS A VACCINES Aged Out No long er eligible based on patient's age to complete this topic HIB VACCINES Aged Out No longer eligi ble based on patient's age to complete this topic MENINGOCOCCAL VACCINES (ACWY) Aged Out No longer eligible based on patient's age to complete this topic MENINGOCOCCAL VACCINES (B) Aged Out N o longer eligible based on patient's age to complete this topic Medical Devices Not on file Insurance [employer] PPO CIGNA CARELINK PPO CIGNA CARELINK PPO CIGNA CARELINK PPO CIGNA CARELINK PPO CIGNA CARELINK PPO CIGNA CARELINK PPO CIGNA CARELINK PPO [employer] CARELINK PPO Care Teams Roll Weigher Relationship Specialty Start Date End Date Unknown, Unknown, PCP - General 10/30/20 Additional Source Comments The information contained in this document represents components of the legal health record. It is not the complete legal health record.[facility]
== END 2024-11-26 08:50 | disposition home or self-care (01) ==
PROVIDERS: PCP Internal Medicine; Visit Provider Physician Assistant Medical
DX: H92.09 Otalgia, unspecified ear (principal); H92.03 Otalgia, bilateral

== ENCOUNTER → 2024-11-26 08:00 | Outpatient (BNVA) | payer OTHER, SELFPAY | PROVIDERS: PCP Internal Medicine; Visit Provider Physician Assistant Medical | DX: H92.03 Otalgia, bilateral (principal); R51.9 Headache, unspecified ==

== ENCOUNTER 2024-12-01 14:17 | Outpatient (AMB) | payer OTHER, SELFPAY ==
[2024-12-01 14:18] VITALS: BP 114/70; PULSE 70; TEMP 37.2; O2SAT 97; BMI 28.2
--- NOTE | 2024-12-01 14:18 | A.OFFPC_ITS ---
Vital Signs 12/01/24 14:18 Height 5 ft 9 in Weight 191 lb BMI 28.2 BP 114/70 Blood Pressure Location Rt brachial Position Sitting Pulse 70 Pulse Source Pulse Oximeter Temp 98.9 F Temp Source Oral Pulse Oximetry (%) 97 Intake Visit Reasons: walk in follow up Railroad Firer/Fireman Required: No Accompanied by: Self / Same As Patient Allergies No Known Allergies Allergy (Verified 12/01/24 14:18) Medication List - Last Reconciled 12/01/24 by Frances Flores MD fluticasone propionate 50 mcg/actuation 1 spray intranasal Q12H Tobacco use date assessed: 12/01/24 Dental Screening Dental Screen Date: 12/01/24 Did you have a dental visit in the last 12 months?: Yes Did you have a dental problem in the last 6 months where you did not have access to dental care?: No Was dental information given to patient?: Patient has dentist HPI walk in follow up HPI Details History of Present Illness The patient is a 49-year-old female presenting with ear pain. Ear Pain: - Began after an airplane flight [place] from [place]. - Initially managed with cetirizine, pse udoephedrine, fluticasone nasal spray, and prednisone 20 mg for 4 days without symptom resolution. She never took the pseudoephedrine as her insurance didnt cover it - Reports of severe pain, described as p ersistent and not relieved with ibuprofen, even at 600 mg doses. - Noticed dizziness and headaches associ ated with the ear pain. - Pain attributed to Eustachian tube dys function due to pressure changes, causing a small blood vessel rupture on the tympanic membrane. left side on exam today Medications: - Ibuprofen, taken at 600 mg for pain re lief but not effective. - Cetirizine and pseudoephedrine previou sly prescribed for decongestion.[ didnt take ] - Fluticasone nasal spray for congestion . - Prednisone 20 mg taken for 4-5 days. Problem List - Eustachian Tube Dysfunction Patient Instructions - Take Diclofenac, one tablet with food every 12 hours for pain relief. 75 mg bid - Use oxycodone at night to aid sleep du e to pain.7 tabs sent - Obtain an mlge-out-faszbjb decongestan t to assist in alleviating ear pressure. - Monitor symptoms and report back in a week. Review of Systems - General: No fever no chills - Ear nose throat: No sore throat no hearing difficulty - Cardiovascular: No syncope, no chest pain, no palpitations - Gastrointestinal: No nausea vomiting or diarrhea Physical Exam General: No acute distress HEENT: slight bleeding on the tympanic membrane, no infection Neck: Supple Respiratory system: Able to talk in full sentences, no audible wheeze Gastrointestinal: No pain Extremities: No new findings BALLET TEACHER: Alert awake oriented x3 motor intact, reports dizziness Skin: Normal turgor Patient was informed and verbally consented to the use of an ambient scribe for clinic note documentation during this visit. [facility] Medical History COVME Social History Housing: House Patient Tobacco Use Status: Former Tobacco user Tobacco use type: Cigarette Years Smoked: 20 years e-Cigarette/Vaping Use: Never Used Second Hand Smoke Exposure: No Current occupational status: employed Cognitive needs: No Hearing needs: No Vision needs: No Questionnaire PHQ-9 Over the last 2 weeks, how often have you been bothered by any of the following problems? 1. Little interest or pleasure in doing things: not at all 2. Feeling down, depressed, or hopeless: not at all 3. Trouble falling or staying asleep, or sleeping too much: not at all 4. Feeling tired or having little energy: not at all 5. Poor appetite or overeating: not at all 6. Feeling bad about yourself - or that you are a failure or have let yourself or your family down: not at all 7. Trouble concentrating on things, such as reading the newspaper or watching television: not at all 8. Moving or speaking so slowly that other people could have noticed. Or the opposite - being so fidgety or restless that you have been moving around a lot more than usual: not at all 9. Thoughts that you would be better off or of hurting yourself in some way: not at all Total score: 0 Depression Screening Interpretation: Negative Depression Screening Done: Yes 83118 - PHQ-9 Billing: Yes Source: Developed by Drs. Barak Ann, Christina B.W. Deny Alarcon and colleagues, with an educational giuliano from [employer]. Thrive Questionnaire Date Thrive assessed: 12/01/24 I am a: Patient What is your living situation today?: I have a steady place to live Within the past 12 months, did the food you bought not last and you didn't have the money to get more?: Never true Within the past 12 months, did you worry whether your food would run out before you got money to buy more?: Never true Do you have trouble paying for medicines?: No Do you have trouble getting transportation to medical appointments?: No Do you have trouble paying your heating and electricity bill?: No Do you have trouble taking care of your child, family member or friend?: No Do you have trouble with day-to-day activities such as bathing, preparing meals, shopping, managing finances, etc.?: No Are you currently unemployed and looking for a job?: Yes Are you interested in more education?: No Please select the resources that you would like help with: None THRIVE Score: 0 AUDIT C Alcohol Use Questionnaire (AUDIT-C) 1. How often do you have a drink containing alcohol?: Never 3. How often do you have six or more drinks on one occasion?: Never Total Score: 0 Score Reviewed/Action Taken: Yes CAM-7 AMB Questionnaire CAM-7 Date CAM - 7 assessed: 12/01/24 Feeling nervous, anxious, or on edge: 2 = More than half the days Not being able to stop or control worryin = Not at all Worrying too much about different things: 2 = More than half the days Trouble relaxin = Not at all Being so restless that it is hard to sit still: 0 = Not at all Becoming easily annoyed or irritable: 0 = Not at all Feeling afraid as if something awful might happen: 0 = Not at all Total CAM-7 score (0-4 normal; 5-9 mild; 10-14 moderate; 15-21 severe): 4 Source: Developed by Drs. Barak Ann, Deny Almaguer and colleagues, with an educational giuliano from [employer]. CAM-7 Assessment Billing CAM-7 Assessment Tool: CAM-7 Assessment 00316 Physical exam (Primary Care) Vital Signs: Last Vital Signs Temp 98.9 F 12/01/24 14:18 Pulse 70 12/01/24 14:18 BP 114/70 12/01/24 14:18 Pulse Ox 97 12/01/24 14:18 BMI result Body Mass Index 28.2 Tobacco/Smoking Status: Tobacco use Status Tobacco use date assessed 12/01/24 12/01/24 14:23 Patient Tobacco Use Status Former Tobacco user 12/01/24 14:23 Tobacco use type Cigarette 12/01/24 14:23 e-Cigarette/Vaping Use Never Used 12/01/24 14:23 PHQ-9: PHQ-9 Score PHQ-9: Total score 0 12/01/24 14:23 Depression Screening Interpretation: Negative Thrive Assessment: Date of Thrive Assessment Date Thrive assessed 12/01/24 12/01/24 14:23 Coding Level of Care Code Est Pt Level 3 (00530) Diagnoses Eustachian tube dysfunction H69.90 Acute pain of both ears H92.03 Additional Codes CAM-7 Assessment Billing - CAM-7 Assessment Tool: CAM-7 Assessment 04656 ([id number]) PHQ-9 - 88911 - PHQ-9 Billing: Yes ([id number]) Assessment & Plan Assessment & Plan (1) Eustachian tube dysfunction: Code(s): H69.90 - Unspecified Eustachian tube disorder, unspecified ear Category: Medical (2) Acute pain of both ears: Code(s): H92.03 - Otalgia, bilateral Category: Medical Plan History of Present Illness The patient is a 49-year-old female presenting with ear pain. Ear Pain: - Began after an airplane flight returning from [place]. - Initially managed with cetirizine, pseudoephedrine, fluticasone nasal spray, and prednisone 20 mg for 4 days without symptom resolution. She never took the pseudoephedrine as her insurance didnt cover it - Reports of severe pain, described as persistent and not relieved with ibuprofen, even at 600 mg doses. - Noticed dizziness and headaches associated with the ear pain. - Pain attributed to Eustachian tube dysfunction due to pressure changes, causing a small blood vessel rupture on the tympanic membrane. left side on exam today Medications: - Ibuprofen, taken at 600 mg for pain relief but not effective. - Cetirizine and pseudoephedrine previously prescribed for decongestion.[ didnt take ] - Fluticasone nasal spray for congestion. - Prednisone 20 mg taken for 4-5 days. Problem List - Eustachian Tube Dysfunction Patient Instructions - Take Diclofenac, one tablet with food every 12 hours for pain relief. 75 mg bid - Use oxycodone at night to aid sleep due to pain.7 tabs sent - Obtain an dcpu-gao-eyzahfx decongestant to assist in alleviating ear pressure. - Monitor symptoms and report back in a week. Medications: New diclofenac sodium take it with food 75 mg PO BID 20 tabs 0RF pain 10 days oxycodone Partial Fill upon patient request. 5 mg PO BEDTIME PRN 7 caps 0RF pain 7 days
--- OUTSIDE RECORDS SUMMARY | 2024-12-01 17:32 | XMS_ITS | Clinical Summary ---
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
--- OUTSIDE RECORDS SUMMARY | 2024-12-01 17:32 | XMS_ITS | Clinical Summary ---
Author Organization [facility] Address [address] [address] Phone Care Team Providers Care Lunch Truck Driver Name Role Phone Unknown, Unknown Primary Care [...] topic Medical Devices Not on file Insurance [employer] PPO C[employer] CARELINK PPO CIGNA CARELINK PPO [employer]IG[employer] CARELINK PPO CIGNA CARELINK PPO [employer]IG[employer] CARELINK PPO [employer] CAR[employer]INK PPO CIG[employer] CARELINK PPO C[employer] CARELINK PPO Care Teams Lunch Truck Driver Relationship Specialty Start Date End Date Unknown, Unknown, PCP - General 10/30/20 Additional Source Comments The information contained in this document represents components of the legal health record. It is not the complete legal health record.[facility]
== END 2024-12-01 15:06 | disposition home or self-care (01) ==
LOC: HO.HMCC 14:17
PROVIDERS: PCP Internal Medicine; Visit Provider Internal Medicine
DX: H69.90 Unspecified Eustachian tube disorder, unspecified ear (principal); H92.03 Otalgia, bilateral

== ENCOUNTER → 2024-12-01 14:17 | Outpatient (BNVA) | payer OTHER, SELFPAY | PROVIDERS: PCP Internal Medicine; Visit Provider Internal Medicine | DX: H92.03 Otalgia, bilateral (principal); H69.90 Unspecified Eustachian tube disorder, unspecified ear | CPT/HCPCS: 96127 ==

== ENCOUNTER 2025-03-08 15:03 | Outpatient (AMB) | payer OTHER, SELFPAY ==
--- NOTE | 2025-03-08 15:06 | A.OFFVIS_ITS ---
Vital Signs 3 03/08/25 15:07 Height 5 ft 9 in Weight 193 lb BMI 28.5 BP 115/71 Blood Pressure Location Rt brachial Position Sitting Pulse 70 Intake Visit Reasons: multiple lipomas Intake Note: Patient is seen in office for evaluation of multiple lipomas. Patient c/o: ? lipoma on Lt lower abdomen, forehead. Patient would like removal of lipomas but does not want scars. Reports previous lipomas removed on lower back have healed with thick scars that at times are painful. L.OV:2020 Flask Cleaner Required: No Accompanied by: spouse Adalberto Allergies No Known Allergies Allergy (Verified 03/08/25 15:12) Medication List - Last Reconciled 03/12/25 by Neftali Lujan MD diclofenac sodium 75 mg PO BID 10 days fluticasone propionate 50 mcg/actuation 1 spray intranasal Q12H HPI Comments Details: 49-year-old female patient returning for evaluation of multiple soft tissue masses located throughout her body including her upper extremities, left lower extremity and abdomen. These have gradually increased in size and occasionally cause some discomfort. She previously underwent excision of 2 large lipomas of the lower back under local anesthesia. She also reports a larger lump located in the left scalp which has been present for many years but has become quite large. She denies any pain or discharge from the site. She would like to have this lump removed. [facility] Medical History COVID Surgical History Hx of umbilical hernia repair Social History Housing: House Patient Tobacco Use Status: Former Tobacco user Tobacco use type: Cigarette Years Smoked: 20 years e-Cigarette/Vaping Use: Never Used Second Hand Smoke Exposure: No Current occupational status: employed Cognitive needs: No Hearing needs: No Vision needs: No Review of Systems Const All systems reviewed & are unremarkable except as noted in HPI and below Denies chills, Denies fever(s), Denies headache(s), Denies poor appetite and Denies weakness ENT Denies headache(s) Card Denies dyspnea Resp Denies cough, Denies excessive phlegm production and Denies dyspnea Musc Denies back pain, Denies muscle weakness and Denies numbness Neuro Denies headache(s), Denies numbness and Denies weakness Physical Exam Vital Signs: Last Vital Signs Pulse 70 03/08/25 15:07 BP 115/71 03/08/25 15:07 BMI result Body Mass Index 28.5 Const General: cooperative and no acute distress Nutritional Appearance: well nourished Orientation/consciousness: patient oriented x3 Limitations: no limitations HEENT Head: Yes normocephalic and Yes atraumatic Head images: 2 1. 3 cm Pilar cyst, soft and fluctuant but nontender to palpation, no erythema Ears: hearing grossly normal bilaterally Resp Effort & Inspection: normal respiratory effort, no audible wheezes, no cough and no respiratory distress GI Inspection: Yes normal to inspection Skin Other: Warm, dry, no rash Neuro General: patient oriented x3 Extrem General: Yes no clubbing, cyanosis or edema Assessment & Plan Assessment & Plan (1) Pilar cyst of scalp: Code(s): L72.11 - Pilar cyst Category: Medical Plan 49-year-old female patient presenting with a large Pilar cyst located on the left scalp. I recommended an excision of this large Pilar cyst as a minor surgery under local anesthesia. After discussion of the procedure, risks, and alternatives, she consents to the surgery. Orders: Referrals 2 General Surgery Procedure Notification L72.11 - Pilar cyst Coding Level of Care Code Est Pt Level 4 (64367) Diagnoses Pilar cyst of scalp L72.11
[2025-03-08 15:07] VITALS: BP 115/71; PULSE 70; BMI 28.5
--- OUTSIDE RECORDS SUMMARY | 2025-03-08 17:21 | XMS_ITS | Clinical Summary ---
Author Organization [facility] Address [address] [address] Phone Care Team Providers Care Lpn Name Role Phone Unknown, Unknown Primary Care [...] 08/11/2023 INFLUENZA VACCINE (#1) 2024 COVID-19 VACCINE (1 - 2024-2 6 season) 2024 RSV VACCINE (1 - 1-dose 75+ series) 2048 HEPATITIS A VACCINES Aged Out No long [...] topic Medical Devices Not on file Insurance [employer] P[employer] CIGNA CARELINK PPO CIGNA CARELINK PPO CIGNA CARELINK PPO [employer]IGNA CARELINK PPO CIGNA CARELINK PPO CIG[employer]INK PPO C[employer] PPO [employer] CARELINK PPO Care Teams Lpn Relationship Specialty Start Date End Date Unknown, Unknown, PCP - General 10/30/20 Additional Source Comments The information contained in this document represents components of the legal health record. It is not the complete legal health record.[facility]
--- OUTSIDE RECORDS SUMMARY | 2025-03-08 17:21 | XMS_ITS | Clinical Summary ---
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 Not on [...] Last Done Comments Breast Cancer Screening 1973 Colorectal Cancer Screening: Colonoscopy 1973 DTaP,Tdap,and Td Vaccines (1 - Tdap) 1992 Hepatitis B Vaccines (1 of 3 - 19+ 3-dose series) 1992 Pneumococcal Vaccine: 50+ Years (1 of 1 - PCV) 08/11/2023 Zoster Vaccines (1 of 2) 08/11/2023 Depression Screening 03/11/2024 HIV Screening 04/28/2024 Hepatitis C Screening 04/28/2024 Social Influencers of Health Screening 04/28/2024 COVID-19 Vaccine (1 - 2024-2 6 season) 2024 Influenza Vaccine (#1) 2024 Cervical Cancer Screening: HPV 05/20/2029 0 05/20/2024, 04/27/2019 RSV Immunization Adult Patients (1 - 1-dose 75+ series) 2048 HIB Vaccines Aged Out No longer eligi [...] Final Result [facility] [address] [place] [address], from Last 3 Months or Most Recently Relevant to Health Maintenance Insurance [employer] Care Teams Salon Designer Relationship Specialty Start Date End Date Katie Carroll MD PCP - General Internal Medicine 01/30/19
== END 2025-03-08 15:34 | disposition home or self-care (01) ==
LOC: HO.HGS 15:04
PROVIDERS: PCP Internal Medicine; Visit Provider Surgery
DX: L72.11 Pilar cyst (principal)
CPT/HCPCS: 99214